=== PATIENT | male | born 1940 | race Caucasian/White ===

== ENCOUNTER 2017-08-21 10:36 | Inpatient (IN) | payer OTHER ==
--- NOTE | 2017-08-21 11:39 | C.PDOC ---
History Of Present Illness 77 year old male with PMHx of DM, HLD, HIV(+) is sent to the ED by his regional economist Dr. Villatoro. Patient reports he had a CT angiogram of the neck done which showed he had carotid stenosis and was sent to the ED for further evaluation and possible admission. Patient states having some pain when turning his head and slight SOB on exertion. Patient denies headache, CP, nausea, vomit , diarrhea, abdominal pain, blurry vision, weakness, numbness. Time Seen by Provider: 08/21/17 11:23 Chief Complaint (Nursing): Dizziness/Lightheaded History Per: Patient History/Exam Limitations: no limitations Onset/Duration Of Symptoms: Days Current Symptoms Are (Timing): Gone Seizure Or Post-ictal Symptoms: None Fall Associated With With Symptoms: No Severity: None Recent travel outside of the [place]: No Additional History Per: Patient Past Medical History Reviewed: Historical Data, Nursing Documentation, Vital Signs Vital Signs: Last Vital Signs Temp 97.8 F 08/21/17 11:01 Pulse 71 08/21/17 11:01 Resp 18 08/21/17 11:01 BP 146/69 08/21/17 11:01 Pulse Ox 98 08/21/17 12:16 - Medical History PMH: Diabetes, HIV, Hypercholesterolemia Surgical History: No Surg Hx Family History: States: Unknown Family Hx - Social History Hx Alcohol Use: No Hx Substance Use: No - Immunization History Hx Tetanus Toxoid Vaccination: No Hx Influenza Vaccination: No Hx Pneumococcal Vaccination: No Review Of Systems Constitutional: Negative for: Fever, Chills Cardiovascular: Negative for: Chest Pain Respiratory: Negative for: Cough, Shortness of Breath Gastrointestinal: Negative for: Nausea, Vomiting, Abdominal Pain Musculoskeletal: Positive for: Neck Pain Skin: Negative for: Rash Neurological: Negative for: Weakness, Numbness, Headache, Dizziness Physical Exam - Physical Exam Appears: Non-toxic, No Acute Distress Skin: Normal Color, Warm, Dry Head: Atraumatic, Normacephalic Nose: No Discharge, No Deformity Oral Mucosa: Moist Neck: Normal ROM, Supple Chest: Symmetrical Cardiovascular: Rhythm Regular, No Murmur Respiratory: Normal Breath Sounds, No Rales, No Rhonchi, No Wheezing Gastrointestinal/Abdominal: Soft, No Tenderness, No Guarding, No Rebound Extremity: Normal ROM, No Pedal Edema, No Calf Tenderness, No Deformity, No Swelling Neurological/Psych: Oriented x3, Normal Speech, Normal Cognition Gait: Steady ED Course And Treatment - Laboratory Results Result Diagrams: 08/21/17 11:39 08/21/17 11:39 ECG: Interpreted By Me, Viewed By Me ECG Rhythm: Sinus Rhythm Interpretation Of ECG: LVH with QRS widening Rate From EC O2 Sat by Pulse Oximetry: 98 (On RA) Pulse Ox Interpretation: Normal - Radiology CXR: Viewed By Me, Read By Radiologist CXR Interpretation: Yes: Other (Biapical nodular pleural thickening. Rounded structure at the level of the mediastinum superior to the right hilum likely prominent vessel.) Medical Decision Making Medical Decision Making: Impression : Pt sent by Dr. Villatoro after neck CT angiogram showed carotid stenosis Plan: * EKG * Labs * CXR * UA Disposition Discussed With DrFeroz: Dusty Jones Counseled Patient/Family Regarding: Studies Performed, Diagnosis - Disposition Disposition: HOSPITALIZED Disposition Time: 12:15 Condition: GUARDED - POA Present On Arrival: None - Clinical Impression Clinical Impression: Dizziness, Near syncope - Scribe Statement The provider has reviewed the documentation as recorded by the Scribe Ike Monteiro All medical record entries made by the Scribe were at my direction and personally dictated by me. I have reviewed the chart and agree that the record accurately reflects my personal performance of the history, physical exam, medical decision making, and the department course for this patient. I have also personally directed, reviewed, and agree with the discharge instructions and disposition. Decision To Admit - Pt Status Changed To: Hospital Disposition Of: Inpatient - Admit Certification Admit to Inpatient:: After my assessment, the patient will require hospitalization for at least two midnights. This is because of the severity of symptoms shown, intensity of services needed, and/or the medical risk in this patient being treated as an outpatient. - InPatient: Physician Admission Certification: I certify that this patient requires 2 or more midnights of care for the following reason:: coratid stenosis, dizziness, hx TIA - . Bed Request Type: Telemetry Patient Diagnosis: Dizziness, Near syncope
[2017-08-21 11:42] LABS: BASO # 0.1 K/uL (0.0-0.2); BASO % 0.7 % (0.0-2.0); EOS # 0.2 K/uL (0.0-0.7); EOS % 2.2 % (0.0-4.0); HEMOGLOBIN 14.2 g/dL (12.0-18.0); LYMPH # 3.4 K/uL (1.0-4.3); LYMPH % 42.3 % (20.0-40.0); MEAN CELL VOLUME 87.6 fL (80.0-94.0); MEAN CORPUSCULAR HEMOGLOBIN 29.6 pg (27.0-31.0); MEAN CORPUSCULAR HGB CONC 33.8 g/dL (33.0-37.0); MEAN PLATELET VOLUME 10.8 fL (7.2-11.7); MONO # 0.7 K/uL (0.0-0.8); MONO % 8.1 % (0.0-10.0); NEUT # 3.8 K/uL (1.8-7.0); NEUT % 46.7 % (50.0-75.0); NRBC % 0.1 % (0.0-2.0); RBC 4.79 Mil/uL (4.40-5.90); RED CELL DISTRIBUTION WIDTH 14.4 % (11.5-14.5); WHITE BLOOD COUNT 8.1 K/uL (4.8-10.8)
[2017-08-21 11:59] LABS: ALB/GLOB RATIO 1.4 (1.0-2.1); ALBUMIN 4.5 g/dL (3.5-5.0); ALT/SGPT 34 U/L (21-72); AST/SGOT 20 U/L (17-59); BLOOD UREA NITROGEN 25 mg/dL (9-20); CALCIUM 9.1 mg/dl (8.6-10.4); GFR AFRICAN-AMERICAN > 60; GFR NON-AFRICAN AMERICAN 59
[2017-08-21 12:15] LABS: CK-MB 3.59 ng/mL (0.0-3.38)
[2017-08-21 12:17] LABS: URINE BACTERIA RARE (<OCC); URINE BILIRUBIN NEGATIVE (NEGATIVE); URINE BLOOD NEGATIVE (NEGATIVE); URINE CLARITY Clear (Clear); URINE COLOR Yellow (YELLOW); URINE GLUCOSE (UA) 3+ mg/dL (Normal); URINE LEUKOCYTE ESTERASE NEG Leu/uL (Negative); URINE NITRATE NEGATIVE (NEGATIVE); URINE PROTEIN NEGATIVE (NEGATIVE); URINE UROBILINOGEN NORMAL mg/dL (0.2-1.0)
--- NOTE | 2017-08-21 13:53 | RAD ---
HISTORY: SOB COMPARISON: None available. TECHNIQUE: Chest PA and lateral FINDINGS: LUNGS: Biapical nodular pleural thickening. No focal consolidation.Rounded structure at the level of the mediastinum superior to the right hilum likely prominent vessel. Please note that chest x-ray has limited sensitivity for the detection of pulmonary masses. PLEURA: No significant pleural effusion identified. No definite pneumothorax . CARDIOVASCULAR: Heart size appears within normal limits. OSSEOUS STRUCTURES: Degenerative changes of the spine and shoulders. Remote rib fracture deformities. VISUALIZED UPPER ABDOMEN: Mild elevation of the right hemidiaphragm. OTHER FINDINGS: None. IMPRESSION: Biapical nodular pleural thickening. Rounded structure at the level of the mediastinum superior to the right hilum likely prominent vessel.
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
[2017-08-21] MEDS ORDERED: Iodixanol 320 MG/ML 100 ML BOTTLE IV ONE (17:29)
[2017-08-21] MEDS: Enoxaparin 40 mg Syringe SC SCH (18:05)
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
[2017-08-22 08:30] LABS: PROTHROMBIN TIME 11.4 SECONDS (9.7-12.2)
[2017-08-22] MEDS: Enoxaparin 40 mg Syringe SC SCH (09:05)
[2017-08-22] MEDS ORDERED: Midazolam 2 MG/2 ML VIAL ONE (09:25)
[2017-08-22] MEDS ORDERED: Iohexol 350mg/ml 100 ML ONE (09:29)
[2017-08-22] MEDS ORDERED: Nitroglycerin 50mg in D5W 50 MG/250 ML BOTTLE IV ONE (09:38)
--- NOTE | 2017-08-22 10:46 | CP.PCM.PN ---
Subjective - Date & Time of Evaluation Date of Evaluation: 08/22/17 Time of Evaluation: 10:45 - Subjective Subjective: Patient s/p cath Non obstructive coronaries Normal EF Low to moderate risk for cardiac events for CEA under general anaesthesia Objective - Vital Signs/Intake and Output Vital Signs (last 24 hours): Temp Pulse Resp BP Pulse Ox 97.5 F L 71 18 129/65 95 08/22/17 09:05 08/22/17 09:05 08/22/17 09:05 08/22/17 09:05 08/22/17 09:05 Intake and Output: 08/22/17 08/22/17 06:59 18:59 Intake Total 210 Balance 210 - Medications Medications: Current Medications Aspirin (Aspirin Chewable) 81 mg PO DAILY [facility] Last Admin: 08/22/17 09:03 Dose: 81 mg Enoxaparin Sodium (Lovenox) 40 mg SC DAILY [facility] Last Admin: 08/22/17 09:05 Dose: Not Given Sodium Chloride (Sodium Chloride 0.9%) 1,000 mls @ 80 mls/hr IV .[id number] [facility] Pneumococcal Polyvalent Vaccine (Pneumovax 23 Vaccine) 0.5 ml IM .ONCE ONE Stop: 08/24/17 14:01 Rosuvastatin Calcium (Crestor) 20 mg PO HS [facility] Last Admin: 08/21/17 22:33 Dose: 20 mg - Labs Labs: 08/21/17 11:39 08/21/17 11:39 PT 11.4 SECONDS (9.7-12.2) 08/22/17 08:17 INR 1.0 08/22/17 08:17 APTT 33 SECONDS (21-34) 08/22/17 08:17
[2017-08-22] MEDS ORDERED: Sodium Chloride 0.9% 1,000 ML IV SCH (11:00)
--- NOTE | 2017-08-22 13:36 | VASCLAB ---
PROCEDURE: HISTORY: carotid stenosis COMPARISON: None available. TECHNIQUE: Grayscale and duplex Doppler evaluation of the cervical carotid and vertebral arteries were performed. The common carotid, carotid bifurcations and cervical Internal Carotid Artery (ICA) and proximal External Carotid Artery (ECA) were evaluated. The vertebral arteries were evaluated for gross patency and flow direction. Report prepared by Giovany Oh, BS, RVT FINDINGS: RIGHT CAROTID ARTERIES: 1. Common Carotid Artery: No significant focal plaque formation of the right common carotid artery. Maximum Peak Systolic velocity: 77 cm/sec: End-diastolic velocity 0 cm/sec. 2. Carotid Bifurcation: Homogeneous plaque formation. Maximum Peak Systolic velocity: 67 cm/sec: End-diastolic velocity 0 cm/sec. 3. Internal Carotid Artery: Severe plaque formation of the right proximal ICA which results in a hemodynamically significant stenosis. Plaque description: Homogeneous 3.1. Proximal Segment: Peak systolic velocity 451 cm/sec: End-diastolic velocity 111 cm/sec - % stenosis 70-95% 3.2. Middle Segment: Peak systolic velocity 73 cm/sec: End-diastolic velocity 0 cm/sec - % stenosis 3.3. Distal Segment: Peak systolic velocity 118 cm/sec: End-diastolic velocity 0 cm/sec - % stenosis 4. External Carotid Artery: No significant focal plaque formation. Peak systolic velocity 180 cm/sec 5. ICA/CCA Ratio: 5.9 LEFT CAROTID ARTERIES: 1. Common Carotid Artery: No significant focal plaque formation of the left common carotid artery. Maximum Peak Systolic velocity: 134 cm/sec: End-diastolic velocity 17 cm/sec. 2. Carotid Bifurcation: plaque formation. Maximum Peak Systolic velocity: 130 cm/sec: End-diastolic velocity 14 cm/sec. 3. Internal Carotid Artery: Plaque description: 3.1. Proximal Segment: Peak systolic velocity 188 cm/sec: End-diastolic velocity 30 cm/sec - % stenosis 60-70% 3.2. Middle Segment: Peak systolic velocity 128 cm/sec: End-diastolic velocity 33 cm/sec - % stenosis 0-15% 3.3. Distal Segment: Peak systolic velocity 124 cm/sec: End-diastolic velocity 33 cm/sec - % stenosis 0-15% 4. External Carotid Artery: No significant focal plaque formation. Peak systolic velocity 227 cm/sec 5. ICA/CCA Ratio: 1.4 VERTEBRAL ARTERIES: 1. Right Vertebral Artery: The right vertebral artery flow direction is antegrade. 2. Left Vertebral Artery: The left vertebral artery flow direction is antegrade. OTHER FINDINGS: 1. Right Brachial Blood pressure: 140 mmHg. 2. Left Brachial Blood pressure: 128 mmHg. IMPRESSION: RIGHT: 70-95% stenosis of the right proximal ICA with severe hemodynamic significance. However, absent end diastolic present in mid and distal ICA waveforms are suggestive of distal occlusion. LEFT: 60-70% stenosis of the left proximal ICA with moderate hemodynamic significance. Dr. Cisse notified about the findings.
--- NOTE | 2017-08-22 14:21 | CP.PCM.PN ---
Subjective - Date & Time of Evaluation Date of Evaluation: 08/22/17 Time of Evaluation: 14:19 - Subjective Subjective: Surgery Pt s&e. NAEON. Pt got cardiac catheterization today. Denies F/C/N/V/D/CP/SOb/ Dizziness/focal weakness. Objective - Vital Signs/Intake and Output Vital Signs (last 24 hours): Temp Pulse Resp BP Pulse Ox 97.5 F L 71 18 129/65 95 08/22/17 09:05 08/22/17 09:05 08/22/17 09:05 08/22/17 09:05 08/22/17 09:05 Intake and Output: 08/22/17 08/22/17 06:59 18:59 Intake Total 210 Balance 210 - Medications Medications: Current Medications Aspirin (Aspirin Chewable) 81 mg PO DAILY [facility] Last Admin: 08/22/17 09:03 Dose: 81 mg Enoxaparin Sodium (Lovenox) 40 mg SC DAILY [facility] Last Admin: 08/22/17 09:05 Dose: Not Given Sodium Chloride (Sodium Chloride 0.9%) 1,000 mls @ 80 mls/hr IV .[id number] [facility] Sodium Chloride (Sodium Chloride 0.9%) 1,000 mls @ 70 mls/hr IV .[id number] [facility] Stop: 08/22/17 23:00 Pneumococcal Polyvalent Vaccine (Pneumovax 23 Vaccine) 0.5 ml IM .ONCE ONE Stop: 08/24/17 14:01 Rosuvastatin Calcium (Crestor) 20 mg PO [facility] Last Admin: 08/21/17 22:33 Dose: 20 mg - Labs Labs: 08/21/17 11:39 08/21/17 11:39 PT 11.4 SECONDS (9.7-12.2) 08/22/17 08:17 INR 1.0 08/22/17 08:17 APTT 33 SECONDS (21-34) 08/22/17 08:17 - Constitutional Appears: No Acute Distress - Head Exam Head Exam: ATRAUMATIC, NORMAL INSPECTION, NORMOCEPHALIC - Eye Exam Eye Exam: EOMI, Normal appearance, PERRL Pupil Exam: NORMAL ACCOMODATION, PERRL - ENT Exam ENT Exam: Mucous Membranes Moist, Normal Exam - Neck Exam Neck Exam: Full ROM, Normal Inspection. absent: Lymphadenopathy - Respiratory Exam Respiratory Exam: Clear to Ausculation Bilateral, NORMAL BREATHING PATTERN - Cardiovascular Exam Cardiovascular Exam: REGULAR RHYTHM, +S1, +S2. absent: Murmur - GI/Abdominal Exam GI & Abdominal Exam: Soft, Normal Bowel Sounds. absent: Distended, Tenderness - Extremities Exam Extremities Exam: Full ROM, Normal Capillary Refill, Normal Inspection. absent : Joint Swelling, Pedal Edema - Back Exam Back Exam: NORMAL INSPECTION - Neurological Exam Neurological Exam: Alert, Awake, CN II-XII Intact, Normal Gait, Oriented x3 - Psychiatric Exam Psychiatric exam: Normal Affect, Normal Mood - Skin Skin Exam: Dry, Intact, Normal Color, Warm Assessment and Plan - Assessment and Plan (Free Text) Assessment: R ICA stenosis -CTA : near obstructing R carotid stenosis -Duplex: R ICA 450 -Planned for OR tomorrow for Carotid Endarterectomy -NPO after midnight DW Dr. Umaña
--- NOTE | 2017-08-22 15:08 | CT ---
PROCEDURE: CT Angiography of the Brain. HISTORY: carotid stenosis COMPARISON: None available. TECHNIQUE: CT angiography of the intracranial arteries was performed. Coronal and sagittal maximum intensity projection reformated images were generated. This CT exam was performed using one or more of the following dose reduction techniques: Automated exposure control, adjustment of the mA and/or kV according to patient size, and/or use of iterative reconstruction technique. FINDINGS: INTERNAL CEREBRAL ARTERIES: At the left, the skull base, petrous, cavernous and supraclinoid ICA segments are widely patent. The right ICA is patent through the skullbase and into its minimal supraclinoid segment. No critical stenosis identified at its origin however. See neck CTA section below. ANTERIOR CEREBRAL ARTERIES: Unremarkable. A1 and A2 segments are widely patent. Smaller distal branches unremarkable, as visualized. The anterior communicating artery appears patent. MIDDLE CEREBRAL ARTERIES: Unremarkable. M1 and M2 segments are widely patent. Perisylvian branches grossly symmetric. POSTERIOR CIRCULATION: Basilar Artery: Patent without significant stenosis. . Distal Vertebral Arteries: Left dominant, patent bilaterally. Posterior Cerebral Arteries: Patent without significant stenosis. The bilateral posterior communicating arteries are patent. Posterior Inferior Cerebellar Arteries: Unremarkable. NECK CTA: Common carotid arteries: The left common carotid carotid artery is widely patent from its origin the through its bifurcation. The right common carotid artery is patent up to the bulb level where prominent atherosclerotic plaques identified. No evidence to suggest common carotid artery dissection. Internal carotid arteries: Gross atherosclerotic plaque is identified at the right carotid bulb resulting in a critical stenosis of likely greater than 90-95 percent at the origin which is favored over occlusion of the right ICA. No collateralization is appreciated immediately following the presumed high-grade stenosis. No significant stenosis is appreciated throughout the left cervical internal carotid artery segments and there is no evidence of dissection either. Vertebral arteries: The bilateral vertebral arteries appear normal in caliber from their origins to their junction with the basilar artery. Vertebrobasilar system appears left dominant. No significant stenosis or definite pattern of dissection. Incidentally, the bilateral subclavian arteries are widely patent as well as the brachiocephalic artery. ANEURYSM/ VASCULAR MALFORMATIONS: None. OTHER FINDINGS: None. IMPRESSION: Critical stenosis is favored over occlusion at the origin of the right ICA. The examination agrees with carotid ultrasound evaluation performed 08/21/2017. Digital subtraction angiography may be required to prove patency of the proximal right ICA. No significant stenosis left ICA and bilateral common carotid arteries. The bilateral common carotid arteries appear patent. Left dominant vertebrobasilar circulation appears patent.
--- NOTE | 2017-08-22 15:10 | CARD ---
APPROVED REPORT EKG Measurement Heart [id number] CT [id number] <Conclusion> Normal sinus rhythm Left axis deviation Left ventricular hypertrophy with QRS widening and repolarization abnormality Cannot rule out anterior infarct, age undetermined Abnormal ECG
[2017-08-22] MEDS: (Novolog) Insulin Aspart, Recombinant 100 u/ml 10 ml vial SC SCH ×2 (17:25→22:22)
--- NOTE | 2017-08-22 20:29 | CP.PCM.PN ---
Subjective - Date & Time of Evaluation Date of Evaluation: 08/22/17 Time of Evaluation: 20:29 Objective - Vital Signs/Intake and Output Vital Signs (last 24 hours): Temp Pulse Resp BP Pulse Ox 97.5 F L 65 20 135/64 96 08/22/17 15:00 08/22/17 16:00 08/22/17 15:00 08/22/17 15:00 08/22/17 15:00 Intake and Output: 08/22/17 08/23/17 18:59 06:59 Intake Total 35 Balance 35 - Medications Medications: Current Medications Aspirin (Aspirin Chewable) 81 mg PO DAILY [facility] Last Admin: 08/22/17 09:03 Dose: 81 mg Enoxaparin Sodium (Lovenox) 40 mg SC DAILY [facility] Last Admin: 08/22/17 09:05 Dose: Not Given Sodium Chloride (Sodium Chloride 0.9%) 1,000 mls @ 80 mls/hr IV .[id number] [facility] Sodium Chloride (Sodium Chloride 0.9%) 1,000 mls @ 70 mls/hr IV .[id number] [facility] Stop: 08/22/17 23:00 Last Admin: 08/22/17 14:59 Dose: 70 mls/hr Insulin Aspart (Novolog) 0 unit SC ACHS [facility] PRN Reason: Protocol Last Admin: 08/22/17 17:25 Dose: 2 unit Pneumococcal Polyvalent Vaccine (Pneumovax 23 Vaccine) 0.5 ml IM .ONCE ONE Stop: 08/24/17 14:01 Rosuvastatin Calcium (Crestor) 20 mg PO HS [facility] Last Admin: 08/21/17 22:33 Dose: 20 mg - Labs Labs: 08/21/17 11:39 08/21/17 11:39 PT 11.4 SECONDS (9.7-12.2) 08/22/17 08:17 INR 1.0 08/22/17 08:17 APTT 33 SECONDS (21-34) 08/22/17 08:17
[2017-08-23 07:23] LABS: BASO % 0.4 % (0.0-2.0); EOS # 0.2 K/uL (0.0-0.7); EOS % 2.5 % (0.0-4.0); HEMOGLOBIN 13.8 g/dL (12.0-18.0); LYMPH # 3.4 K/uL (1.0-4.3); MEAN CELL VOLUME 87.4 fL (80.0-94.0); MEAN CORPUSCULAR HEMOGLOBIN 29.7 pg (27.0-31.0); MEAN CORPUSCULAR HGB CONC 33.9 g/dL (33.0-37.0); MEAN PLATELET VOLUME 10.8 fL (7.2-11.7); MONO # 0.8 K/uL (0.0-0.8); MONO % 9.8 % (0.0-10.0); NEUT # 4.2 K/uL (1.8-7.0); NEUT % 48.3 % (50.0-75.0); NRBC % 0.1 % (0.0-2.0); RBC 4.64 Mil/uL (4.40-5.90); RED CELL DISTRIBUTION WIDTH 14.4 % (11.5-14.5); WHITE BLOOD COUNT 8.6 K/uL (4.8-10.8)
[2017-08-23 07:25] LABS: PROTHROMBIN TIME 11.6 SECONDS (9.7-12.2)
[2017-08-23 08:21] LABS: ALB/GLOB RATIO 1.3 (1.0-2.1); ALBUMIN 3.7 g/dL (3.5-5.0); ALT/SGPT 23 U/L (21-72); AST/SGOT 20 U/L (17-59); BLOOD UREA NITROGEN 18 mg/dL (9-20); CALCIUM 8.3 mg/dl (8.6-10.4); GFR AFRICAN-AMERICAN > 60; GFR NON-AFRICAN AMERICAN > 60
[2017-08-23] MEDS: (Novolog) Insulin Aspart, Recombinant 100 u/ml 10 ml vial SC SCH ×4 (09:19→21:44)
[2017-08-23] MEDS: Enoxaparin 40 mg Syringe SC SCH (09:20)
[2017-08-23] MEDS ORDERED: Thrombin Topical 20,000 Intl Units Spray Kit TOP ONE (12:19)
[2017-08-23] MEDS ORDERED: Lidocaine 1% Inj (20ml) ONE (12:19)
[2017-08-23] MEDS ORDERED: ceFAZolin IV 1 gm in Dextrose 1 GM/50 ML BAG IVPB ONE (12:20)
[2017-08-23] MEDS ORDERED: Propofol 10 mg/ml Inj (20 ML) ONE (12:31)
[2017-08-23] MEDS ORDERED: Rocuronium 10 mg/ml (5 ml) ONE ×3 (12:32→13:52)
[2017-08-23] MEDS ORDERED: Succinylcholine Chloride 20 mg/ml Syr (5 ml) IV ONE ×3 (12:32→13:52)
[2017-08-23] MEDS ORDERED: Lactated Ringer's 1,000 ML IV ONE ×2 (12:40→14:35)
[2017-08-23] MEDS ORDERED: White Petrolatum/Mineral Oil Ophth Oint(3.5 gm) ONE ×2 (13:00→13:45)
[2017-08-23] MEDS ORDERED: HEPARIN-NS 5,000 UNITS/500 ML 10,000 UNIT/1,000 ML BAG IV ONE (13:19)
[2017-08-23] MEDS ORDERED: ePHEDrine 50 mg/ml Inj ONE (13:33)
[2017-08-23] MEDS: Sodium Chloride 0.9% 1,000 ML IV SCH ×2 (13:55→17:10)
[2017-08-23] MEDS ORDERED: oxyCODONE 5 mg Immediate Release Tab PO PRN (15:51)
--- NOTE | 2017-08-23 15:51 | PCM.SURG1 ---
Surgeon's Initial Post Op Note - Surgeon's Notes Surgeon: Leeroy Fitting Room Inspector: PGY4, Inder MS3 Type of Anesthesia: General Endo Pre-Operative Diagnosis: R carotid stenosis Operative Findings: R carotid plaque Post-Operative Diagnosis: R carotid stenosis Operation Performed: R carotid endarterectomy Specimen/Specimens Removed: R carotid plaque Estimated Blood Loss: EBL {In ML}: 100 Blood Products Given: N/A Drains Used: Lg (in R neck) Date of Surgery/Procedure: 08/23/17 Time of Surgery/Procedure: 12:40
--- NOTE | 2017-08-23 15:52 | CP.PCM.PN ---
Subjective - Date & Time of Evaluation Date of Evaluation: 08/23/17 Time of Evaluation: 15:51 Objective - Vital Signs/Intake and Output Vital Signs (last 24 hours): Temp Pulse Resp BP Pulse Ox 97.6 F 67 20 151/72 H 98 08/23/17 12:06 08/23/17 12:06 08/23/17 12:06 08/23/17 12:06 08/23/17 12:06 Intake and Output: 08/23/17 08/23/17 06:59 18:59 Intake Total 880 240 Output Total 1500 Balance -620 240 - Medications Medications: Current Medications Aspirin (Aspirin Chewable) 81 mg PO DAILY [facility] Last Admin: 08/23/17 09:18 Dose: 81 mg Aspirin (Aspirin Chewable) 81 mg PO DAILY [facility] Brimonidine Tartrate (Alphagan 0.2% Opht) 0 ml OU BID [facility] Donepezil HCl (Aricept) 10 mg PO DAILY [facility] Enoxaparin Sodium (Lovenox) 40 mg SC DAILY [facility] Last Admin: 08/23/17 09:20 Dose: Not Given Fenofibrate (Tricor) 145 mg PO DAILY [facility] Ferrous Sulfate (Feosol) 325 mg PO DAILY [facility] Furosemide (Lasix) 20 mg PO DAILY [facility] Gabapentin (Neurontin) 300 mg PO BID [facility] Glipizide (Glucotrol) 10 mg PO BID [facility] Sodium Chloride (Sodium Chloride 0.9%) 1,000 mls @ 80 mls/hr IV .[id number] [facility] Last Admin: 08/23/17 13:55 Dose: Not Given Insulin Aspart (Novolog) 0 unit SC ACHS [facility] PRN Reason: Protocol Last Admin: 08/23/17 11:30 Dose: Not Given Ketoconazole (Nizoral) gm TOP BID [facility] Metformin HCl (Glucophage) 1,000 mg PO BIDCC [facility] Pneumococcal Polyvalent Vaccine (Pneumovax 23 Vaccine) 0.5 ml IM .ONCE ONE Stop: 08/24/17 14:01 Potassium Chloride (Klor-Con 10) 10 meq PO DAILY [facility] Raltegravir (Isentress) 400 mg PO BID [facility] Rosuvastatin Calcium (Crestor) 20 mg PO HS [facility] Last Admin: 08/22/17 21:42 Dose: 20 mg Tamsulosin HCl (Flomax) 0.4 mg PO DAILY [facility] Timolol Maleate (Timoptic 0.5% Ophth Soln) 0 drop OU BID [facility] - Labs Labs: 08/23/17 07:01 08/23/17 07:01 PT 11.6 SECONDS (9.7-12.2) 08/23/17 07:01 INR 1.0 08/23/17 07:01 APTT 31 SECONDS (21-34) 08/23/17 07:01
[2017-08-23] MEDS ORDERED: Nitroglycerin 2% Ointment Foilpak UD TOP PRN (15:55)
[2017-08-23] MEDS ORDERED: Sodium Chloride 0.9% 1,000 ML IV ONE (17:00)
[2017-08-23] MEDS ORDERED: Home Med 1 UNIT (Brimonidine Tartrate/Timolol [Combigan 0.2%-0.5% Eye Drops] 1 DROP) OU SCH (18:00)
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
[2017-08-23] MEDS: Brimonidine 0.2% Opth Sol (5ml) OU SCH (18:41)
[2017-08-24] MEDS: Sodium Chloride 0.9% 1,000 ML IV SCH ×2 (01:10→06:00)
[2017-08-24] MEDS ORDERED: Dextrose 5%/0.9% NS 1,000 ML IV SCH (06:30)
[2017-08-24 06:39] LABS: BASO % 0.3 % (0.0-2.0); EOS # 0.1 K/uL (0.0-0.7); EOS % 1.1 % (0.0-4.0); HEMOGLOBIN 12.8 g/dL (12.0-18.0); LYMPH # 2.5 K/uL (1.0-4.3); LYMPH % 30.5 % (20.0-40.0); MEAN CELL VOLUME 87.2 fL (80.0-94.0); MEAN CORPUSCULAR HGB CONC 34.4 g/dL (33.0-37.0); MEAN PLATELET VOLUME 10.7 fL (7.2-11.7); MONO # 0.9 K/uL (0.0-0.8); MONO % 10.3 % (0.0-10.0); NEUT # 4.8 K/uL (1.8-7.0); NEUT % 57.8 % (50.0-75.0); RBC 4.26 Mil/uL (4.40-5.90); RED CELL DISTRIBUTION WIDTH 14.5 % (11.5-14.5); WHITE BLOOD COUNT 8.3 K/uL (4.8-10.8)
[2017-08-24 06:55] LABS: BLOOD UREA NITROGEN 16 mg/dL (9-20); CALCIUM 8.2 mg/dl (8.6-10.4); GFR AFRICAN-AMERICAN > 60; GFR NON-AFRICAN AMERICAN > 60; MAGNESIUM 1.8 mg/dL (1.6-2.3)
[2017-08-24] MEDS: (Novolog) Insulin Aspart, Recombinant 100 u/ml 10 ml vial SC SCH ×4 (07:51→22:08)
[2017-08-24] MEDS: Enoxaparin 40 mg Syringe SC SCH (09:35)
[2017-08-24] MEDS: Potassium Chloride 10 mEq ER Tab PO SCH (09:36)
[2017-08-24] MEDS: Brimonidine 0.2% Opth Sol (5ml) OU SCH ×2 (09:39→17:47)
--- NOTE | 2017-08-24 10:09 | CP.CCUPN ---
CCU Subjective - Physician Review Events Since Last Encounter (Free Text): 08/24/17 10:08 77-year-old male with a history of hypertension, diabetes, hyperlipidemia, HIV admitted with CVA. Right internal carotid artery stenosis, and the patient underwent right carotid endarterectomy. Patient is currently feeling well. Vital signs stable. Patient is awake and responding. Clinically stable. Neurological examination is unremarkable. Patient is clinical stable, and he can be discharged to the regular medical floor CCU Objective - Vital Signs / Intake & Output Vital Signs (Last 4 hours): Vital Signs Temp Pulse Resp BP Pulse Ox 08/24/17 09:37 119/48 L 08/24/17 08:00 97.8 F 60 16 133/51 L 96 08/24/17 07:08 58 L 13 123/45 L 97 08/24/17 07:00 60 12 95 Intake and Output (Last 8hrs): Intake & Output 08/23/17 08/24/17 08/24/17 22:59 06:59 14:59 Intake Total 670 640 160 Output Total 45 600 300 Balance 625 40 -140 Intake: Intake, IV Amount 570 640 160 Left Forearm 320 640 160 Left Upper arm 10 Right Forearm 240 Oral 100 Output: Urine 600 300 Urine, Voided 600 300 Emesis 45 Other: # Voids Urine, Voided 0 # Bowel Movements 0 - Medications Active Medications: Active Medications Generic Name Dose Route Start Last Admin Trade Name Freq PRN Reason Stop Dose Admin Aspirin 81 mg 08/24/17 10:00 08/24/17 09:36 Aspirin Chewable PO 81 mg DAILY MAYANK Administration Brimonidine Tartrate 0 ml 08/23/17 18:00 08/24/17 09:39 Alphagan 0.2% Opht OU 1 drop BID MAYANK Administration Donepezil HCl 10 mg 08/24/17 10:00 08/24/17 09:37 Aricept PO 10 mg DAILY [facility] Administration Enoxaparin Sodium 40 mg 08/21/17 16:45 08/24/17 09:35 Lovenox SC 40 mg DAILY [facility] Administration Fenofibrate 145 mg 08/24/17 10:00 08/24/17 09:37 Tricor PO 145 mg DAILY [facility] Administration Ferrous Sulfate 325 mg 08/24/17 10:00 08/24/17 09:37 Feosol PO 325 mg DAILY [facility] Administration Furosemide 20 mg 08/24/17 10:00 08/24/17 09:37 Lasix PO 20 mg DAILY [facility] Administration Gabapentin 300 mg 08/23/17 18:00 08/24/17 09:36 Neurontin PO 300 mg BID [facility] Administration Glipizide 10 mg 08/23/17 18:00 08/24/17 09:36 Glucotrol PO 10 mg BID [facility] Administration Sodium Chloride 1,000 mls @ 80 mls/hr 08/22/17 10:45 08/24/17 06:00 Sodium Chloride 0.9% IV 80 mls/hr .[id number] MAYANK Administration Insulin Aspart 0 unit 08/22/17 16:30 08/24/17 07:51 Novolog SC 2 unit ACHS MAYANK Administration Protocol Ketoconazole 0 gm 08/23/17 18:00 08/24/17 09:38 Nizoral TOP 1 applic BID MAY[facility] Administration Metformin HCl 1,000 mg 08/23/17 17:00 08/24/17 07:51 Glucophage PO 1,000 mg BIDCC MAY[facility] Administration Nitroglycerin 1 ea 08/23/17 15:55 Nitro-Bid 2% Oint TOP 1200 PRN Systolic Blood Pressure Oxycodone HCl 5 mg 08/23/17 15:51 Oxycodone Immediate Release Tab PO Q6H PRN Pain, moderate (4-7) Pneumococcal Polyvalent Vaccine 0.5 ml 08/24/17 14:00 Pneumovax 23 Vaccine IM 08/24/17 14:01 .ONCE ONE Potassium Chloride 10 meq 08/24/17 10:00 08/24/17 09:36 Klor-Con 10 PO 10 meq DAILY [facility] Administration Raltegravir 400 mg 08/23/17 18:00 08/24/17 09:53 Isentress PO 400 mg BID MAY[facility] Administration Rosuvastatin Calcium 20 mg 08/21/17 22:00 08/23/17 21:42 Crestor PO 20 mg HS MAYANK Administration Tamsulosin HCl 0.4 mg 08/24/17 10:00 08/24/17 09:37 Flomax PO 0.4 mg DAILY [facility] Administration Timolol Maleate 0 drop 08/23/17 18:00 08/24/17 09:39 Timoptic 0.5% Ophth Soln OU 1 drop BID MAYANK Administration - Patient Studies Lab Studies: Lab Studies 08/24/17 08/24/17 08/24/17 Range/Units 07:47 06:29 06:29 WBC 8.3 (4.8-10.8) K/uL RBC 4.26 L (4.40-5.90) Mil/uL Hgb 12.8 (12.0-18.0) g/dL Hct 37.2 (35.0-51.0) % MCV 87.2 (80.0-94.0) fL MCH 30.0 (27.0-31.0) pg MCHC 34.4 (33.0-37.0) g/dL RDW 14.5 (11.5-14.5) % Plt Count 143 (130-400) K/uL MPV 10.7 (7.2-11.7) fL Neut % (Auto) 57.8 (50.0-75.0) % Lymph % (Auto) 30.5 (20.0-40.0) % [place] % (Auto) 10.3 H (0.0-10.0) % Eos % (Auto) 1.1 (0.0-4.0) % Baso % (Auto) 0.3 (0.0-2.0) % Neut # 4.8 (1.8-7.0) K/uL Lymph # 2.5 (1.0-4.3) K/uL [place] # 0.9 H (0.0-0.8) K/uL Eos # 0.1 (0.0-0.7) K/uL Baso # 0.0 (0.0-0.2) K/uL Sodium 134 (132-148) mmol/L Potassium 3.9 (3.6-5.2) mmol/L Chloride 104 (98-107) mmol/L Carbon Dioxide 23 (22-30) mmol/L Anion Gap 11 (10-20) BUN 16 (9-20) mg/dL Creatinine 0.8 (0.8-1.5) mg/dL Est GFR ( Amer) > 60 Est GFR (Non-Af Amer) > 60 POC Glucose (mg/dL) 176 H (65-110) mg/dL Random Glucose 173 H (75-110) mg/dL Calcium 8.2 L (8.6-10.4) mg/dl Phosphorus 3.0 (2.5-4.5) mg/dL Magnesium 1.8 (1.6-2.3) mg/dL 08/23/17 08/23/17 08/23/17 Range/Units 21:28 16:55 11:26 WBC (4.8-10.8) K/uL RBC (4.40-5.90) Mil/uL Hgb (12.0-18.0) g/dL Hct (35.0-51.0) % MCV (80.0-94.0) fL MCH (27.0-31.0) pg MCHC (33.0-37.0) g/dL RDW (11.5-14.5) % Plt Count (130-400) K/uL MPV (7.2-11.7) fL Neut % (Auto) (50.0-75.0) % Lymph % (Auto) (20.0-40.0) % [place] % (Auto) (0.0-10.0) % Eos % (Auto) (0.0-4.0) % Baso % (Auto) (0.0-2.0) % Neut # (1.8-7.0) K/uL Lymph # (1.0-4.3) K/uL [place] # (0.0-0.8) K/uL Eos # (0.0-0.7) K/uL Baso # (0.0-0.2) K/uL Sodium (132-148) mmol/L Potassium (3.6-5.2) mmol/L Chloride (98-107) mmol/L Carbon Dioxide (22-30) mmol/L Anion Gap (10-20) BUN (9-20) mg/dL Creatinine (0.8-1.5) mg/dL Est GFR ( Amer) Est GFR (Non-Af Amer) POC Glucose (mg/dL) 185 H 153 H 171 H (65-110) mg/dL Random Glucose (75-110) mg/dL Calcium (8.6-10.4) mg/dl Phosphorus (2.5-4.5) mg/dL Magnesium (1.6-2.3) mg/dL 08/23/17 Range/Units 06:14 WBC (4.8-10.8) K/uL RBC (4.40-5.90) Mil/uL Hgb (12.0-18.0) g/dL Hct (35.0-51.0) % MCV (80.0-94.0) fL MCH (27.0-31.0) pg MCHC (33.0-37.0) g/dL RDW (11.5-14.5) % Plt Count (130-400) K/uL MPV (7.2-11.7) fL Neut % (Auto) (50.0-75.0) % Lymph % (Auto) (20.0-40.0) % [place] % (Auto) (0.0-10.0) % Eos % (Auto) (0.0-4.0) % Baso % (Auto) (0.0-2.0) % Neut # (1.8-7.0) K/uL Lymph # (1.0-4.3) K/uL [place] # (0.0-0.8) K/uL Eos # (0.0-0.7) K/uL Baso # (0.0-0.2) K/uL Sodium (132-148) mmol/L Potassium (3.6-5.2) mmol/L Chloride (98-107) mmol/L Carbon Dioxide (22-30) mmol/L Anion Gap (10-20) BUN (9-20) mg/dL Creatinine (0.8-1.5) mg/dL Est GFR ( Amer) Est GFR (Non-Af Amer) POC Glucose (mg/dL) 137 H (65-110) mg/dL Random Glucose (75-110) mg/dL Calcium (8.6-10.4) mg/dl Phosphorus (2.5-4.5) mg/dL Magnesium (1.6-2.3) mg/dL Laboratory Results - last 24 hr 08/23/17 08/23/17 08/23/17 06:14 11:26 16:55 WBC RBC Hgb Hct MCV MCH MCHC RDW Plt Count MPV Neut % (Auto) Lymph % (Auto) [place] % (Auto) Eos % (Auto) Baso % (Auto) Neut # Lymph # [place] # Eos # Baso # Sodium Potassium Chloride Carbon Dioxide Anion Gap BUN Creatinine Est GFR ( Amer) Est GFR (Non-Af Amer) POC Glucose (mg/dL) 137 H 171 H 153 H Random Glucose Calcium Phosphorus Magnesium 08/23/17 08/24/17 08/24/17 21:28 06:29 06:29 WBC 8.3 RBC 4.26 L Hgb 12.8 Hct 37.2 MCV 87.2 MCH 30.0 MCHC 34.4 RDW 14.5 Plt Count 143 MPV 10.7 Neut % (Auto) 57.8 Lymph % (Auto) 30.5 [place] % (Auto) 10.3 H Eos % (Auto) 1.1 Baso % (Auto) 0.3 Neut # 4.8 Lymph # 2.5 [place] # 0.9 H Eos # 0.1 Baso # 0.0 Sodium 134 Potassium 3.9 Chloride 104 Carbon Dioxide 23 Anion Gap 11 BUN 16 Creatinine 0.8 Est GFR ( Amer) > 60 Est GFR (Non-Af Amer) > 60 POC Glucose (mg/dL) 185 H Random Glucose 173 H Calcium 8.2 L Phosphorus 3.0 Magnesium 1.8 08/24/17 07:47 WBC RBC Hgb Hct MCV MCH MCHC RDW Plt Count MPV Neut % (Auto) Lymph % (Auto) [place] % (Auto) Eos % (Auto) Baso % (Auto) Neut # Lymph # [place] # Eos # Baso # Sodium Potassium Chloride Carbon Dioxide Anion Gap BUN Creatinine Est GFR ( Amer) Est GFR (Non-Af Amer) POC Glucose (mg/dL) 176 H Random Glucose Calcium Phosphorus Magnesium Fingerstick Blood Sugar Results: 176 Critical Care Progress Note - Nutrition Nutrition: Nutrition Category Date Time Status Liquid Diet [DIET] Diets 08/24/17 Breakfast Active
[2017-08-24] MEDS ORDERED: Magnesium Hydroxide Susp 30 ml UD PO ONE (10:32)
--- NOTE | 2017-08-24 10:35 | CP.PCM.PN ---
Subjective - Date & Time of Evaluation Date of Evaluation: 08/24/17 Time of Evaluation: 10:34 - Subjective Subjective: doing well no deficits bp etc ok labs ok to floor posible dc in a,m Objective - Vital Signs/Intake and Output Vital Signs (last 24 hours): Temp Pulse Resp BP Pulse Ox 97.8 F 65 14 119/48 L 96 08/24/17 08:00 08/24/17 09:00 08/24/17 09:00 08/24/17 09:37 08/24/17 09:00 Intake and Output: 08/24/17 08/24/17 06:59 18:59 Intake Total 1060 600 Output Total 645 300 Balance 415 300 - Medications Medications: Current Medications Aspirin (Aspirin Chewable) 81 mg PO DAILY [facility] Last Admin: 08/24/17 09:36 Dose: 81 mg Brimonidine Tartrate (Alphagan 0.2% Opht) 0 ml OU BID [facility] Last Admin: 08/24/17 09:39 Dose: 1 drop Donepezil HCl (Aricept) 10 mg PO DAILY [facility] Last Admin: 08/24/17 09:37 Dose: 10 mg Enoxaparin Sodium (Lovenox) 40 mg SC DAILY [facility] Last Admin: 08/24/17 09:35 Dose: 40 mg Fenofibrate (Tricor) 145 mg PO DAILY [facility] Last Admin: 08/24/17 09:37 Dose: 145 mg Ferrous Sulfate (Feosol) 325 mg PO DAILY [facility] Last Admin: 08/24/17 09:37 Dose: 325 mg Furosemide (Lasix) 20 mg PO DAILY [facility] Last Admin: 08/24/17 09:37 Dose: 20 mg Gabapentin (Neurontin) 300 mg PO BID [facility] Last Admin: 08/24/17 09:36 Dose: 300 mg Glipizide (Glucotrol) 10 mg PO BID [facility] Last Admin: 08/24/17 09:36 Dose: 10 mg Sodium Chloride (Sodium Chloride 0.9%) 1,000 mls @ 80 mls/hr IV .[id number] [facility] Last Admin: 08/24/17 06:00 Dose: 80 mls/hr Insulin Aspart (Novolog) 0 unit SC ACHS [facility] PRN Reason: Protocol Last Admin: 08/24/17 07:51 Dose: 2 unit Ketoconazole (Nizoral) 0 gm TOP BID [facility] Last Admin: 08/24/17 09:38 Dose: 1 applic Magnesium Hydroxide (Milk Of Magnesia) 30 ml PO ONCE ONE Stop: 08/24/17 10:33 Metformin HCl (Glucophage) 1,000 mg PO BIDCC [facility] Last Admin: 08/24/17 07:51 Dose: 1,000 mg Nitroglycerin (Nitro-Bid 2% Oint) 1 ea TOP 1200 PRN PRN Reason: Systolic Blood Pressure Oxycodone HCl (Oxycodone Immediate Release Tab) 5 mg PO Q6H PRN PRN Reason: Pain, moderate (4-7) Pneumococcal Polyvalent Vaccine (Pneumovax 23 Vaccine) 0.5 ml IM .ONCE ONE Stop: 08/24/17 14:01 Potassium Chloride (Klor-Con 10) 10 meq PO DAILY [facility] Last Admin: 08/24/17 09:36 Dose: 10 meq Raltegravir (Isentress) 400 mg PO BID [facility] Last Admin: 08/24/17 09:53 Dose: 400 mg Rosuvastatin Calcium (Crestor) 20 mg PO HS [facility] Last Admin: 08/23/17 21:42 Dose: 20 mg Tamsulosin HCl (Flomax) 0.4 mg PO DAILY [facility] Last Admin: 08/24/17 09:37 Dose: 0.4 mg Timolol Maleate (Timoptic 0.5% Oph Soln) 0 drop OU BID [facility] Last Admin: 08/24/17 09:39 Dose: 1 drop - Labs Labs: 08/24/17 06:29 08/24/17 06:29 PT 11.6 SECONDS (9.7-12.2) 08/23/17 07:01 INR 1.0 08/23/17 07:01 APTT 31 SECONDS (21-34) 08/23/17 07:01
[2017-08-24] MEDS ORDERED: Pneumococcal 23-Valent Vaccine IM ONE (14:00)
[2017-08-24] MEDS ORDERED: Influenza Vaccine 60 mcg/0.5 mL SYR (4YR UP) IM ONE (14:00)
--- NOTE | 2017-08-24 16:56 | CP.PCM.PN ---
Subjective - Date & Time of Evaluation Date of Evaluation: 08/24/17 Time of Evaluation: 16:56 Objective - Vital Signs/Intake and Output Vital Signs (last 24 hours): Temp Pulse Resp BP Pulse Ox 98.3 F 66 14 96/27 L 95 08/24/17 16:00 08/24/17 16:00 08/24/17 16:00 08/24/17 16:00 08/24/17 16:00 Intake and Output: 08/24/17 08/24/17 06:59 18:59 Intake Total 1060 1200 Output Total 645 650 Balance 415 550 - Medications Medications: Current Medications Aspirin (Aspirin Chewable) 81 mg PO DAILY [facility] Last Admin: 08/24/17 09:36 Dose: 81 mg Brimonidine Tartrate (Alphagan 0.2% Opht) 0 ml OU BID [facility] Last Admin: 08/24/17 09:39 Dose: 1 drop Donepezil HCl (Aricept) 10 mg PO DAILY [facility] Last Admin: 08/24/17 09:37 Dose: 10 mg Enoxaparin Sodium (Lovenox) 40 mg SC DAILY [facility] Last Admin: 08/24/17 09:35 Dose: 40 mg Fenofibrate (Tricor) 145 mg PO DAILY [facility] Last Admin: 08/24/17 09:37 Dose: 145 mg Ferrous Sulfate (Feosol) 325 mg PO DAILY [facility] Last Admin: 08/24/17 09:37 Dose: 325 mg Furosemide (Lasix) 20 mg PO DAILY [facility] Last Admin: 08/24/17 09:37 Dose: 20 mg Gabapentin (Neurontin) 300 mg PO BID [facility] Last Admin: 08/24/17 09:36 Dose: 300 mg Glipizide (Glucotrol) 10 mg PO BID [facility] Last Admin: 08/24/17 09:36 Dose: 10 mg Insulin Aspart (Novolog) 0 unit SC ACHS [facility] PRN Reason: Protocol Last Admin: 08/24/17 16:23 Dose: 3 unit Ketoconazole (Nizoral) 0 gm TOP BID [facility] Last Admin: 08/24/17 09:38 Dose: 1 applic [facility] Last Admin: 08/24/17 16:22 Dose: 1,000 mg Nitroglycerin (Nitro-Bid 2% Oint) 1 ea TOP 1200 PRN PRN Reason: Systolic Blood Pressure Oxycodone HCl (Oxycodone Immediate Release Tab) 5 mg PO Q6H PRN PRN Reason: Pain, moderate (4-7) Potassium Chloride (Klor-Con 10) 10 meq PO DAILY [facility] Last Admin: 08/24/17 09:36 Dose: 10 meq Raltegravir (Isentress) 400 mg PO BID [facility] Last Admin: 08/24/17 09:53 Dose: 400 mg Rosuvastatin Calcium (Crestor) 20 mg PO HS [facility] Last Admin: 08/23/17 21:42 Dose: 20 mg Tamsulosin HCl (Flomax) 0.4 mg PO DAILY [facility] Last Admin: 08/24/17 09:37 Dose: 0.4 mg Timolol Maleate (Timoptic 0.5% [facility]) 0 drop OU BID [facility] Last Admin: 08/24/17 09:39 Dose: 1 drop - Labs Labs: 08/24/17 06:29 08/24/17 06:29 PT 11.6 SECONDS (9.7-12.2) 08/23/17 07:01 INR 1.0 08/23/17 07:01 APTT 31 SECONDS (21-34) 08/23/17 07:01
--- NOTE | 2017-08-24 21:21 | CP.PCM.PN ---
Subjective - Date & Time of Evaluation Date of Evaluation: 08/23/17 Time of Evaluation: 15:05 - Subjective Subjective: Patient seen and evaluated Denies chest pain and dyspnea s/p CEA No cardiac events noted Objective - Vital Signs/Intake and Output Vital Signs (last 24 hours): Temp Pulse Resp BP Pulse Ox 98.1 F 66 13 113/56 L 96 08/24/17 20:00 08/24/17 20:00 08/24/17 20:00 08/24/17 20:00 08/24/17 20:00 Intake and Output: 08/24/17 08/25/17 18:59 06:59 Intake Total 1320 0 Output Total 900 0 Balance 420 0 - Medications Medications: Current Medications Aspirin (Aspirin Chewable) 81 mg PO DAILY [facility] Last Admin: 08/24/17 09:36 Dose: 81 mg Brimonidine Tartrate (Alphagan 0.2% Opht) 0 ml OU BID [facility] Last Admin: 08/24/17 17:47 Dose: 1 drop Donepezil HCl (Aricept) 10 mg PO DAILY [facility] Last Admin: 08/24/17 09:37 Dose: 10 mg Enoxaparin Sodium (Lovenox) 40 mg SC DAILY [facility] Last Admin: 08/24/17 09:35 Dose: 40 mg Fenofibrate (Tricor) 145 mg PO DAILY [facility] Last Admin: 08/24/17 09:37 Dose: 145 mg Ferrous Sulfate (Feosol) 325 mg PO DAILY [facility] Last Admin: 08/24/17 09:37 Dose: 325 mg Furosemide (Lasix) 20 mg PO DAILY [facility] Last Admin: 08/24/17 09:37 Dose: 20 mg Gabapentin (Neurontin) 300 mg PO BID [facility] Last Admin: 08/24/17 17:48 Dose: 300 mg Glipizide (Glucotrol) 10 mg PO BID [facility] Last Admin: 08/24/17 17:48 Dose: 10 mg Insulin Aspart (Novolog) 0 unit SC [facility] PRN Reason: Protocol Last Admin: 08/24/17 16:23 Dose: 3 unit Ketoconazole (Nizoral) 0 gm TOP BID [facility] Last Admin: 08/24/17 17:47 Dose: 1 applic [facility] Admin: 08/24/17 16:22 Dose: 1,000 mg Nitroglycerin (Nitro-Bid 2% Oint) 1 ea TOP 1200 PRN PRN Reason: Systolic Blood Pressure Oxycodone HCl (Oxycodone Immediate Release Tab) 5 mg PO Q6H PRN PRN Reason: Pain, moderate (4-7) Potassium Chloride (Klor-Con 10) 10 meq PO DAILY [facility] Last Admin: 08/24/17 09:36 Dose: 10 meq Raltegravir (Isentress) 400 mg PO BID [facility] Last Admin: 08/24/17 17:48 Dose: 400 mg Rosuvastatin Calcium (Crestor) 20 mg PO HS [facility] Last Admin: 08/23/17 21:42 Dose: 20 mg Tamsulosin HCl (Flomax) 0.4 mg PO DAILY [facility] Last Admin: 08/24/17 09:37 Dose: 0.4 mg Timolol Maleate (Timoptic 0.5% Ophth Soln) 0 drop OU BID [facility] Last Admin: 08/24/17 17:47 Dose: 1 drop - Labs Labs: 08/24/17 06:29 08/24/17 06:29 PT 11.6 SECONDS (9.7-12.2) 08/23/17 07:01 INR 1.0 08/23/17 07:01 APTT 31 SECONDS (21-34) 08/23/17 07:01
[2017-08-25] MEDS: (Novolog) Insulin Aspart, Recombinant 100 u/ml 10 ml vial SC SCH ×2 (09:24→12:27)
[2017-08-25] MEDS: Enoxaparin 40 mg Syringe SC SCH (09:26)
[2017-08-25] MEDS: Brimonidine 0.2% Opth Sol (5ml) OU SCH (09:31)
[2017-08-25] MEDS: Potassium Chloride 10 mEq ER Tab PO SCH (09:34)
--- NOTE | 2017-08-25 09:49 | CP.PCM.PN ---
Subjective - Date & Time of Evaluation Date of Evaluation: 08/25/17 Time of Evaluation: 09:30 - Subjective Subjective: Vascular Surgery Note for Dr. Umaña Patient seen and examined today at bedside. No acute event overnight. Patient is s/p Right CEA POD#2. He is tolerating diet. Patient has no complaints. Objective - Vital Signs/Intake and Output Vital Signs (last 24 hours): Temp Pulse Resp BP Pulse Ox 98.6 F 74 10 L 142/59 L 100 08/25/17 08:00 08/25/17 08:47 08/25/17 08:47 08/25/17 09:22 08/25/17 08:47 Intake and Output: 08/25/17 08/25/17 06:59 18:59 Intake Total 120 400 Output Total 350 1000 Balance -230 -600 - Medications Medications: Current Medications Aspirin (Aspirin Chewable) 81 mg PO DAILY [facility] Last Admin: 08/25/17 09:34 Dose: 81 mg Brimonidine Tartrate (Alphagan 0.2% Opht) 0 ml OU BID [facility] Last Admin: 08/25/17 09:31 Dose: 1 drop Donepezil HCl (Aricept) 10 mg PO DAILY [facility] Last Admin: 08/25/17 09:22 Dose: 10 mg Enoxaparin Sodium (Lovenox) 40 mg SC DAILY [facility] Last Admin: 08/25/17 09:26 Dose: 40 mg Fenofibrate (Tricor) 145 mg PO DAILY [facility] Last Admin: 08/25/17 09:23 Dose: 145 mg Ferrous Sulfate (Feosol) 325 mg PO DAILY [facility] Last Admin: 08/25/17 09:23 Dose: 325 mg Furosemide (Lasix) 20 mg PO DAILY [facility] Last Admin: 08/25/17 09:22 Dose: 20 mg Gabapentin (Neurontin) 300 mg PO BID [facility] Last Admin: 08/25/17 09:23 Dose: 300 mg Glipizide (Glucotrol) 10 mg PO BID [facility] Last Admin: 08/25/17 09:23 Dose: 10 mg Insulin Aspart (Novolog) 0 unit SC ACHS [facility] PRN Reason: Protocol Last Admin: 08/25/17 09:24 Dose: 2 unit Ketoconazole (Nizoral) 0 gm TOP BID [facility] Last Admin: 08/25/17 09:25 Dose: 1 applic Metformin HCl (Glucophage) 1,000 mg PO BIDCC [facility] Last Admin: 08/25/17 09:00 Dose: 1,000 mg Nitroglycerin (Nitro-Bid 2% Oint) 1 ea TOP 1200 PRN PRN Reason: Systolic Blood Pressure Oxycodone HCl (Oxycodone Immediate Release Tab) 5 mg PO Q6H PRN PRN Reason: Pain, moderate (4-7) Potassium Chloride (Klor-Con 10) 10 meq PO DAILY [facility] Last Admin: 08/25/17 09:34 Dose: 10 meq Raltegravir (Isentress) 400 mg PO BID [facility] Last Admin: 08/25/17 09:23 Dose: 400 mg Rosuvastatin Calcium (Crestor) 20 mg PO HS [facility] Last Admin: 08/24/17 22:26 Dose: 20 mg Tamsulosin HCl (Flomax) 0.4 mg PO DAILY [facility] Last Admin: 08/25/17 09:22 Dose: 0.4 mg Timolol Maleate (Timoptic 0.5% Ophth Soln) 0 drop OU BID [facility] Last Admin: 08/25/17 09:27 Dose: 1 drop - Labs Labs: 08/24/17 06:29 08/24/17 06:29 PT 11.6 SECONDS (9.7-12.2) 08/23/17 07:01 INR 1.0 08/23/17 07:01 APTT 31 SECONDS (21-34) 08/23/17 07:01 - Constitutional Appears: No Acute Distress - Head Exam Head Exam: ATRAUMATIC, NORMOCEPHALIC - Eye Exam Eye Exam: EOMI, Normal appearance Pupil Exam: PERRL - ENT Exam ENT Exam: Mucous Membranes Moist - Neck Exam Additional comments: surgical dressing clean dry and intact - Respiratory Exam Respiratory Exam: NORMAL BREATHING PATTERN - Cardiovascular Exam Cardiovascular Exam: REGULAR RHYTHM - GI/Abdominal Exam GI & Abdominal Exam: Soft, Normal Bowel Sounds. absent: Tenderness - Neurological Exam Neurological Exam: Alert, Awake, CN II-XII Intact, Oriented x3 Neuro motor strength exam: Left Upper Extremity: 5, Right Upper Extremity: 5, Left Lower Extremity: 5, Right Lower Extremity: 5 Additional comments: no motor or sensory deficits - Psychiatric Exam Psychiatric exam: Normal Affect, Normal Mood - Skin Skin Exam: Dry, Intact, Normal Color, Warm Assessment and Plan - Assessment and Plan (Free Text) Plan: 77 M s/p Right CEA POD#2 -Patient clear for discharge from surgical standpoint -Keep area clean, dry, and intact -Follow up with Dr. Umaña as outpatient within 1 week -Discussed with Dr. Leeroy Cuevas PGY1
[2017-08-25 13:44] VITALS: BP 112/48; PULSE 65; RESP 17; TEMP 98; O2SAT 96
--- NOTE | 2017-08-25 14:03 | CP.PCM.DIS ---
Provider - Provider Date of Admission: 08/21/17 12:16 Attending physician: Vero Ruiz MD Time Spent in preparation of Discharge (in minutes): 35 Hospital Course - Lab Results Lab Results: Micro Results 08/23/17 17:20 Naris MRSA Culture (Admit) - Final MRSA NOT DETECTED Most Recent Lab Values WBC 8.3 K/uL (4.8-10.8) 08/24/17 06:29 RBC 4.26 Mil/uL (4.40-5.90) L 08/24/17 06:29 Hgb 12.8 g/dL (12.0-18.0) 08/24/17 06:29 Hct 37.2 % (35.0-51.0) 08/24/17 06:29 MCV 87.2 fL (80.0-94.0) 08/24/17 06:29 MCH 30.0 pg (27.0-31.0) 08/24/17 06:29 MCHC 34.4 g/dL (33.0-37.0) 08/24/17 06:29 RDW 14.5 % (11.5-14.5) 08/24/17 06:29 Plt Count 143 K/uL (130-400) 08/24/17 06:29 MPV 10.7 fL (7.2-11.7) 08/24/17 06:29 Neut % (Auto) 57.8 % (50.0-75.0) 08/24/17 06:29 Lymph % (Auto) 30.5 % (20.0-40.0) 08/24/17 06:29 [place] % (Auto) 10.3 % (0.0-10.0) H 08/24/17 06:29 Eos % (Auto) 1.1 % (0.0-4.0) 08/24/17 06:29 Baso % (Auto) 0.3 % (0.0-2.0) 08/24/17 06: Neut # 4.8 K/uL (1.8-7.0) 08/24/17 06: Lymph # 2.5 K/uL (1.0-4.3) 08/24/17 06:29 [place] # 0.9 K/uL (0.0-0.8) H 08/24/17 06:29 Eos # 0.1 K/uL (0.0-0.7) 08/24/17 06:29 Baso # 0.0 K/uL (0.0-0.2) 08/24/17 06:29 PT 11.6 SECONDS (9.7-12.2) 08/23/17 07:01 INR 1.0 08/23/17 07:01 APTT 31 SECONDS (21-34) 08/23/17 07:01 Sodium 134 mmol/L (132-148) 08/24/17 06:29 Potassium 3.9 mmol/L (3.6-5.2) 08/24/17 06:29 Chloride 104 mmol/L (98-107) 08/24/17 06:29 Carbon Dioxide 23 mmol/L (22-30) 08/24/17 06:29 Anion Gap 11 (10-20) 08/24/17 06:29 BUN 16 mg/dL (9-20) 08/24/17 06:29 Creatinine 0.8 mg/dL (0.8-1.5) 08/24/17 06:29 Est GFR ( Amer) > 60 08/24/17 06:29 Est GFR (Non-Af Amer) > 60 08/24/17 06:29 POC Glucose (mg/dL) 173 mg/dL (65-110) H 08/25/17 11:59 Random Glucose 173 mg/dL (75-110) H 08/24/17 06:29 Calcium 8.2 mg/dl (8.6-10.4) L 08/24/17 06:29 Phosphorus 3.0 mg/dL (2.5-4.5) 08/24/17 06:29 Magnesium 1.8 mg/dL (1.6-2.3) 08/24/17 06:29 Total Bilirubin 0.4 mg/dL (0.2-1.3) 08/23/17 07:01 AST 20 U/L (17-59) 08/23/17 07:01 ALT 23 U/L (21-72) 08/23/17 07:01 Alkaline Phosphatase 45 U/L (38-126) 08/23/17 07:01 CK-MB (Mass) 3.59 ng/mL (0.0-3.38) H 08/21/17 11:39 Troponin I < 0.0120 ng/mL (0.00-0.120) 08/21/17 11:39 Total Protein 6.5 g/dL (6.3-8.3) 08/23/17 07:01 Albumin 3.7 g/dL (3.5-5.0) 08/23/17 07:01 Globulin 2.8 gm/dL (2.2-3.9) 08/23/17 07:01 Albumin/Globulin Ratio 1.3 (1.0-2.1) 08/23/17 07:01 Urine Color Yellow (YELLOW) 08/21/17 11:54 Urine Clarity Clear (Clear) 08/21/17 11:54 Urine pH 5.0 (5.0-8.0) 08/21/17 11:54 Ur Specific [place] 1.016 (1.003-1.030) 08/21/17 11:54 Urine Protein Negative mg/dL (NEGATIVE) 08/21/17 11:54 Urine Glucose (UA) 3+ mg/dL (Normal) H 08/21/17 11:54 Urine Ketones Negative mg/dL (NEGATIVE) 08/21/17 11:54 Urine Blood Negative (NEGATIVE) 08/21/17 11:54 Urine Nitrate Negative (NEGATIVE) 08/21/17 11:54 Urine Bilirubin Negative (NEGATIVE) 08/21/17 11:54 Urine Urobilinogen Normal mg/dL (0.2-1.0) 08/21/17 11:54 Ur Leukocyte Esterase Neg [place]/uL (Negative) 08/21/17 11:54 Urine WBC (Auto) 1 /hpf (0-5) 08/21/17 11:54 Urine RBC (Auto) < 1 /hpf (0-3) 08/21/17 11:54 Urine Bacteria Rare (<OCC) 08/21/17 11:54 Blood Type O NEGATIVE 08/22/17 19:35 Antibody Screen Negative 08/22/17 19:35 Discharge Exam - Head Exam Head Exam: ATRAUMATIC, NORMAL INSPECTION, NORMOCEPHALIC Discharge Plan - Follow Up Plan Condition: GUARDED Disposition: HOME/ ROUTINE
--- NOTE | 2017-08-25 14:49 | CARDCATH ---
PROCEDURE DATE: 08/22/2017 PROCEDURES: 1. Left heart catheterization. 2. Coronary angiogram. 3. Aortic root angiogram. 4. Radiological supervision and radiological interpretation of the left heart catheterization, coronary angiogram and aortic root angiogram. REFERRING PHYSICIAN: Lavelle Villatoro MD. PERFORMING PHYSICIAN: Dusty Jones MD. CLINICAL INDICATIONS: 1. Unstable angina. 2. Critical carotid artery disease. 3. Preop cardiac risk assessment. The patient is not a candidate for stress test. PROCEDURE: After informed consent, the patient was prepped and draped in the usual sterile fashion. 2% lidocaine was given in the right wrist for local anesthesia. Using micropuncture technique, 6-Danish sheath was introduced into right radial artery. JR4 6-Danish diagnostic catheter crossed into left ventricle across the aortic valve. Contrast injected and LV angiogram was performed. LV end diastolic pressure measured. Catheter was pulled back across the aortic valve. Gradient across the aortic valve was measured. The same catheter engaged into the right coronary artery, contrast injected and right coronary angiogram was performed. The catheter was exchanged to 5-Danish [place] catheter. The catheter engaged into left main coronary artery. Contrast injected and left coronary angiogram was performed. Aortic root angiogram was performed using [place] catheter. Post procedure, the catheter was pulled back. Terumo radial sheath applied to right wrist with excellent hemostasis. FINDINGS: 1. Left main coronary artery is patent. 2. Proximal and distal LAD are patent. Mid LAD has a 40% nonobstructive stenosis. Diagonal branches are patent. 3. Left circumflex is large and dominant. Left circumflex coronary artery is patent. 4. Right coronary artery is small, nondominant. Proximal right coronary artery has 60% nonobstructive stenosis. 5. LV ejection fraction is approximately 70%. No wall motion abnormalities noted. There is no gradient across the aortic valve. LV end diastolic pressure is 14. Aortic root angiogram confirmed no aortic dissection or aortic aneurysm. CONCLUSION: 1. Nonobstructive coronaries. 2. Normal left ventricular systolic function. Dusty Jones MD
--- NOTE | 2017-08-25 22:59 | CP.PCM.PN ---
Subjective - Date & Time of Evaluation Date of Evaluation: 08/25/17 Time of Evaluation: 10:15 - Subjective Subjective: Patient seen and evaluated S/P CEA No cardiac events For d/c today Follow up with Dr. Villatoro Objective - Vital Signs/Intake and Output Vital Signs (last 24 hours): Temp Pulse Resp BP Pulse Ox 98 F 65 17 112/48 L 96 08/25/17 12:00 08/25/17 12:00 08/25/17 12:00 08/25/17 12:00 08/25/17 12:00 Intake and Output: 08/25/17 08/26/17 18:59 06:59 Intake Total 700 Output Total 1000 Balance -300 - Labs Labs: 08/24/17 06:29 08/24/17 06:29 PT 11.6 SECONDS (9.7-12.2) 08/23/17 07:01 INR 1.0 08/23/17 07:01 APTT 31 SECONDS (21-34) 08/23/17 07:01
--- NOTE | 2017-08-26 07:46 | OP ---
PROCEDURE DATE: 08/23/2017 PREOPERATIVE DIAGNOSIS: Transient ischemic attack, syncope. PROCEDURE: Right carotid endarterectomy. SURGEON: Jeffy Umaña Jr., MD. SALES MERCHANDISER: . ANESTHESIOLOGIST: Dr. Krishnamurthy. INDICATIONS: Patient is a 77-year-old man with multiple deficiency problems, who presents with dizziness and near syncopal event. He underwent cardiac evaluation and subsequently found on evaluation of a high grade stenosis approximately 99% of the right internal carotic artery. OPERATIVE FINDINGS: 1. The internal carotid artery is very diminutive. 2. The common external artery is unremarkable. There was a thick plaque beginning at the and extending up to the origin of the internal. At the end of the procedure, the patient awoke, intact, moving all fours without any overt deficit. DESCRIPTION OF PROCEDURE: Patient was given general anesthesia, intravenous antibiotics. Venodyne boots were applied. Standard skin preparation was carried out. An incision was made exposing the common internal and external carotid arteries. After exposure of the vessels, heparin was given. A [place] shunt was placed and a standard endarterectomy was carried out. There was a clean endpoint in the internal carotid artery. After completion of this and application of a bovine patch, we closed the wounds with subcuticular closure and Steri-Strips and left a small tissue ____ wound. Blood loss for the procedure was approximately 100 to 150 mL. So, the operation carried out was right carotid endarterectomy with placement of patch. Jeffy Umaña Jr., MD cc: [address] Michael Dr.
== END 2017-08-25 15:27 | disposition home or self-care (01) | DRG 38 ==
LOC: C.ER 10:36 → C.9E 12:16 → C.6T 21:52 → C.9I 08-23 16:39
PROVIDERS: ADMIT Internal Medicine Critical Care Medicine; ATTEND Internal Medicine Critical Care Medicine
PROC: 4A023N7 Measurement of Cardiac Sampling and Pressure, Left Heart, Percutaneous Approach (ICD-10-PCS; principal; 2017-08-22)
PROC: B2111ZZ Fluoroscopy of Multiple Coronary Arteries using Low Osmolar Contrast (ICD-10-PCS; 2017-08-22)
PROC: B2151ZZ Fluoroscopy of Left Heart using Low Osmolar Contrast (ICD-10-PCS; 2017-08-22)
PROC: 03CK0ZZ Extirpation of Matter from Right Internal Carotid Artery, Open Approach (ICD-10-PCS; 2017-08-23)
PROC: 03UK0JZ Supplement Right Internal Carotid Artery with Synthetic Substitute, Open Approach (ICD-10-PCS; 2017-08-23)
DX: I65.21 Occlusion and stenosis of right carotid artery (principal); I25.110 Atherosclerotic heart disease of native coronary artery with unstable angina pectoris; E11.51 Type 2 diabetes mellitus with diabetic peripheral angiopathy without gangrene; I10 Essential (primary) hypertension; E78.00 Pure hypercholesterolemia, unspecified; H91.92 Unspecified hearing loss, left ear; Z86.73 Personal history of transient ischemic attack (TIA), and cerebral infarction without residual deficits; Z83.3 Family history of diabetes mellitus; Z21 Asymptomatic human immunodeficiency virus [HIV] infection status

== ENCOUNTER 2018-06-10 11:30 | Inpatient (IN) | payer OTHER ==
[2018-06-10] MEDS ORDERED: Sodium Chloride 0.9% 1,000 ML IV ONE (12:41)
[2018-06-10 13:11] LABS: BASO % 0.4 % (0.0-2.0); EOS # 0.2 K/uL (0.0-0.7); EOS % 1.8 % (0.0-4.0); HEMOGLOBIN 14.1 g/dL (12.0-18.0); LYMPH # 2.9 K/uL (1.0-4.3); LYMPH % 31.8 % (20.0-40.0); MEAN CELL VOLUME 88.7 fL (80.0-94.0); MEAN CORPUSCULAR HEMOGLOBIN 30.3 pg (27.0-31.0); MEAN CORPUSCULAR HGB CONC 34.2 g/dL (33.0-37.0); MEAN PLATELET VOLUME 10.4 fL (7.2-11.7); MONO # 0.9 K/uL (0.0-0.8); MONO % 10.1 % (0.0-10.0); NEUT # 5.1 K/uL (1.8-7.0); NEUT % 55.9 % (50.0-75.0); RBC 4.65 Mil/uL (4.40-5.90); WHITE BLOOD COUNT 9.1 K/uL (4.8-10.8)
[2018-06-10 13:20] LABS: PROTHROMBIN TIME 11.3 SECONDS (9.7-12.2)
[2018-06-10] MEDS ORDERED: Sodium Chloride 0.9% 1,000 ML ONE (13:25)
--- NOTE | 2018-06-10 13:34 | RAD ---
PROCEDURE: Radiographs of the left great toe. TECHNIQUE:: AP radiograph of the left foot, with oblique and lateral view of the left great toe. COMPARISON: None. FINDINGS: BONES: No acute fracture. JOINTS: Normal. SOFT TISSUES: Distal toe soft tissue swelling. OTHER FINDINGS: None. IMPRESSION: No demonstrated fracture or dislocation.
[2018-06-10 13:35] LABS: ALB/GLOB RATIO 1.2 (1.0-2.1); ALBUMIN 4.5 g/dL (3.5-5.0); ALT/SGPT 43 U/L (21-72); AST/SGOT 31 U/L (17-59); BLOOD UREA NITROGEN 31 mg/dL (9-20); CALCIUM 10.7 mg/dl (8.6-10.4); GFR NON-AFRICAN AMERICAN > 60
[2018-06-10] MEDS ORDERED: Piperacillin/Tazobact 3.375 gm 100 ML IV STA (14:01)
--- NOTE | 2018-06-10 14:02 | C.PDOC ---
History Of Present Illness 77 yo male w/PMHx of HIV, IDDM, HTN comes in for evaluation of left big toe open wound, non-healing, noted some discharge, increase pain since yesterday. Otherwise, pt denies fever, chills, known trauma or injury, CP, SOB, dyspnea, cough, abd. pain, N/V, denies deformity, weakness, sensory or vascular deficits to left leg. Ambulate to Ed w/assistance of walker. Time Seen by Provider: 06/10/18 12:30 Chief Complaint (Nursing): Abnormal Skin Integrity History Per: Patient Past Medical History Reviewed: Historical Data, Nursing Documentation, Vital Signs Vital Signs: Last Vital Signs Temp 97.7 F 06/10/18 11:44 Pulse 80 06/10/18 11:44 Resp 18 06/10/18 11:44 BP 144/74 06/10/18 11:44 Pulse Ox 97 06/10/18 11:44 - Medical History PMH: Diabetes, HIV, HTN, Hypercholesterolemia Denies: Chronic Kidney Disease - [facility] Procedures EXTIRPATION OF MATTER FROM R INT CAROTID, OPEN APPROACH (08/21/17) FLUOROSCOPY OF LEFT HEART USING LOW OSMOLAR CONTRAST (08/21/17) FLUOROSCOPY OF MULT COR ART USING L OSM CONTRAST (08/21/17) MEASURE OF CARDIAC SAMPL & PRESSURE, L HEART, PERC APPROACH (08/21/17) SUPPLEMENT R INT CAROTID WITH SYNTH SUB, OPEN APPROACH (08/21/17) Family History: States: Unknown Family Hx - Social History Hx Alcohol Use: No Hx Substance Use: No - Immunization History Hx Tetanus Toxoid Vaccination: No Hx Influenza Vaccination: Yes Hx Pneumococcal Vaccination: No Review Of Systems Except As Marked, All Systems Reviewed And Found Negative. Constitutional: Negative for: Fever, Chills ENT: Negative for: Throat Pain Cardiovascular: Negative for: Chest Pain Respiratory: Negative for: Cough, Shortness of Breath Gastrointestinal: Negative for: Nausea, Vomiting, Abdominal Pain Musculoskeletal: Positive for: Foot Pain Skin: Positive for: Lesions Neurological: Negative for: Weakness, Numbness, Altered Mental Status, Headache, Dizziness Physical Exam - Physical Exam Appears: Well, Non-toxic, No Acute Distress Skin: Normal Color, Warm, Dry, Other (left big toe small open wound tip of toe 3cm diameter, mild yellow discahrges noted. B/L feet dry skin noted with diffuse onychomycosis.) Head: Normacephalic Eye(s): bilateral: PERRL Nose: No Flaring, No Discharge Oral Mucosa: Moist Tongue: Normal Appearing Lips: Normal Appearing Throat: No Erythema, No Drooling Neck: Trachea Midline, Supple Cardiovascular: Rhythm Regular, No Murmur, No JVD Respiratory: No Decreased Breath Sounds, No Accessory Muscle Use, No Stridor, No Wheezing Gastrointestinal/Abdominal: Soft, No Tenderness, No Distention, No Guarding, No Rebound Back: No CVA Tenderness Extremity: Normal ROM (left foot/ankle), Tenderness (left 1st toe), No Calf Tenderness, Capillary Refill (less than 2sec to left foot), No Deformity, Swelling (mild edema left big toe with erythema, proximal streaking noted dorsal aepct left foot from left big to extend to ankle.) Neurological/Psych: Oriented x3, Normal Speech, Normal Motor, Normal Sensation, Normal Reflexes ED Course And Treatment - Laboratory Results Result Diagrams: 06/10/18 13:05 06/10/18 13:05 Lab Interpretation: No Acute Changes O2 Sat by Pulse Oximetry: 97 Pulse Ox Interpretation: Normal - Other Rad Left foot X-Ray: Interpreted by Me, Viewed By Me Interpretation: no acute fx/osteo - CT Scan/US Doppler US LLE Other Rad Studies (CT/US): Radiology Report Reviewed CT/US Interpretation: (-) DVT left LE Progress Note: case discussed with and admission arranged with Dx: left foot cellulitis with open wound, IDDM. Disposition Counseled Patient/Family Regarding: Diagnosis, Need For Followup - Disposition Disposition: HOSPITALIZED Disposition Time: 14:00 Condition: STABLE - Clinical Impression Clinical Impression: Cellulitis, Foot ulcer due to secondary DM
[2018-06-10 14:08] LABS: SQUAMOUS EPITHIAL < 1 /hpf (0-5); URINE BILIRUBIN NEGATIVE (NEGATIVE); URINE BLOOD NEGATIVE (NEGATIVE); URINE CLARITY Clear (Clear); URINE COLOR Yellow (YELLOW); URINE GLUCOSE (UA) 3+ mg/dL (Normal); URINE LEUKOCYTE ESTERASE NEG Leu/uL (Negative); URINE PROTEIN NEGATIVE (NEGATIVE); URINE UROBILINOGEN NORMAL mg/dL (0.2-1.0)
[2018-06-10] MEDS ORDERED: Piperacillin/Tazobact 3.375 gm 100 ML IVPB ONE (14:21)
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
[2018-06-10] MEDS: Piperacill/Tazo 3.375gm in Dex 3.375 GM/50 ML BAG IVPB SCH (19:46)
[2018-06-10] MEDS: Omega-3-Acid Ethyl Esters 1 GM Cap PO SCH (19:53)
[2018-06-10] MEDS ORDERED: Dextrose 50% SYRINGE Inj (50 ml) IV PRN (20:34)
[2018-06-10] MEDS ORDERED: Glucagon Recombinant 1 mg Inj IM PRN (20:34)
[2018-06-10] MEDS: (Novolin R) Insulin Human Regular 100 units/ml vial SC SCH (21:11)
[2018-06-10] MEDS: (Lantus) Insulin Glargine, Recombinant SC SCH (21:57)
[2018-06-10] MEDS: Latanoprost 2.5 ml Opht Soln OU SCH (21:59)
[2018-06-11 00:48] VITALS: RESP 20
[2018-06-11] MEDS: Piperacill/Tazo 3.375gm in Dex 3.375 GM/50 ML BAG IVPB SCH ×3 (02:17→19:52)
[2018-06-11 07:12] LABS: BASO % 0.3 % (0.0-2.0); EOS # 0.2 K/uL (0.0-0.7); EOS % 2.5 % (0.0-4.0); HEMOGLOBIN 12.7 g/dL (12.0-18.0); LYMPH # 1.7 K/uL (1.0-4.3); LYMPH % 23.8 % (20.0-40.0); MEAN CELL VOLUME 88.9 fL (80.0-94.0); MEAN CORPUSCULAR HEMOGLOBIN 30.1 pg (27.0-31.0); MEAN CORPUSCULAR HGB CONC 33.9 g/dL (33.0-37.0); MEAN PLATELET VOLUME 10.2 fL (7.2-11.7); MONO # 0.8 K/uL (0.0-0.8); NEUT # 4.2 K/uL (1.8-7.0); NEUT % 61.4 % (50.0-75.0); RBC 4.22 Mil/uL (4.40-5.90); RED CELL DISTRIBUTION WIDTH 13.9 % (11.5-14.5); WHITE BLOOD COUNT 6.9 K/uL (4.8-10.8)
[2018-06-11 07:27] LABS: ALB/GLOB RATIO 1.3 (1.0-2.1); ALBUMIN 3.8 g/dL (3.5-5.0); ALT/SGPT 39 U/L (21-72); AST/SGOT 22 U/L (17-59); BLOOD UREA NITROGEN 26 mg/dL (9-20); CALCIUM 9.7 mg/dl (8.6-10.4); GFR NON-AFRICAN AMERICAN > 60
[2018-06-11] MEDS: (Novolin R) Insulin Human Regular 100 units/ml vial SC SCH ×4 (08:54→21:49)
[2018-06-11] MEDS: Omega-3-Acid Ethyl Esters 1 GM Cap PO SCH ×2 (09:24→17:40)
[2018-06-11] MEDS: Brimonidine 0.2% Opth Sol (5ml) OU SCH ×2 (09:27→17:42)
[2018-06-11] MEDS: Ammonium Lactate 12% Lotion (225 g) TOP SCH ×2 (09:29→18:55)
[2018-06-11] MEDS ORDERED: Potassium Chloride 10 mEq ER Tab PO SCH (10:00)
--- NOTE | 2018-06-11 11:43 | CP.PCM.PN ---
Subjective - Date & Time of Evaluation Date of Evaluation: 06/11/18 Time of Evaluation: 11:42 - Subjective Subjective: Dr Goff Medicine Note Pt seen and examined at bedside. no complaints overnight. still has no sensation from shimns down bilaterally in all dermatomes. chronic. Pt denies fc nv cp sob. Objective - Vital Signs/Intake and Output Vital Signs (last 24 hours): Temp Pulse Resp BP Pulse Ox 98.5 F 71 20 135/77 96 06/11/18 07:39 06/11/18 07:39 06/11/18 07:39 06/11/18 09:23 06/11/18 07:39 Intake and Output: 06/11/18 06/11/18 06:59 18:59 Intake Total 400 300 Balance 400 300 - Medications Medications: Current Medications Aspirin (Aspirin Chewable) 81 mg PO DAILY [facility] Last Admin: 06/11/18 09:24 Dose: 81 mg Brimonidine Tartrate (Alphagan 0.2% Opht) 1 ml OU BID [facility] Last Admin: 06/11/18 09:27 Dose: 1 drop Clopidogrel Bisulfate (Plavix) 75 mg PO DAILY [facility] Last Admin: 06/11/18 09:23 Dose: 75 mg Darunavir (Prezista) 800 mg PO DAILY [facility]; Protocol Last Admin: 06/11/18 09:26 Dose: 800 mg Dextrose (Dextrose 50% Inj) 0 ml IV STAT PRN; Protocol PRN Reason: Hypoglycemia Protocol Dextrose (Glutose 15) 0 gm PO ONCE PRN; Protocol PRN Reason: Hypoglycemia Protocol Donepezil HCl (Aricept) 10 mg PO DAILY [facility] Last Admin: 06/11/18 09:25 Dose: 10 mg Famotidine (Pepcid) 40 mg PO DAILY [facility] Last Admin: 06/11/18 09:25 Dose: 40 mg Fenofibrate (Tricor) 145 mg PO DAILY [facility] Last Admin: 06/11/18 09:26 Dose: 145 mg Ferrous Sulfate (Feosol) 325 mg PO DAILY [facility] Last Admin: 06/11/18 09:25 Dose: 325 mg Finasteride (Proscar) 5 mg PO DAILY [facility] Furosemide (Lasix) 20 mg PO DAILY [facility] Last Admin: 06/11/18 09:23 Dose: 20 mg Gabapentin (Neurontin) 300 mg PO BID [facility] Last Admin: 06/11/18 09:25 Dose: 300 mg Glipizide (Glucotrol) 10 mg PO BID [facility] Last Admin: 06/11/18 09:23 Dose: 10 mg Glucagon (Glucagen Diagnostic Kit) 0 mg IM STAT PRN; Protocol PRN Reason: Hypoglycemia Protocol Heparin Sodium (Porcine) (Heparin) 5,000 units SC Q12 [facility] Last Admin: 06/11/18 09:27 Dose: 5,000 units Piperacillin Sod/Tazobactam Sod (Zosyn 3.375 Gm Iv Premix) 3.375 gm in 50 mls @ 100 mls/hr IVPB Q8H [facility]; Protocol Last Admin: 06/11/18 02:17 Dose: 100 mls/hr Dextrose (Dextrose 5% In Water 1000 Ml) 1,000 mls @ 0 mls/hr IV .Q0M PRN; Protocol PRN Reason: Hypoglycemia Protocol Influenza Virus Vaccine (Fluzone Quad [id number]) 60 mcg IM .ONCE ONE Stop: 06/13/18 10:01 Insulin Glargine (Lantus) 25 unit SC HS [facility] Last Admin: 06/10/18 21:57 Dose: 25 unit Insulin Human Regular (Novolin R) 0 unit SC ACHS [facility]; Protocol Last Admin: 06/11/18 08:54 Dose: 1 units Lactic Acid (Lac-Hydrin 12% Lotion (225 G)) 0 gm TOP BID [facility] Last Admin: 06/11/18 09:29 Dose: 1 applic Latanoprost (Xalatan Opht) 0 ml OU HS [facility] Last Admin: 06/10/18 21:59 Dose: 2.5 ml Metformin HCl (Glucophage) 1,000 mg PO BID [facility] Last Admin: 06/11/18 09:24 Dose: 1,000 mg Nitroglycerin (Nitrostat Sl Tab) 0.4 mg SL DAILY PRN PRN Reason: chest pain [id number] Ethyl Esters (Lovaza) 1 gm PO BID [facility] Last Admin: 06/11/18 09:24 Dose: 1 gm Potassium Chloride (Klor-Con 10) 10 meq PO DAILY [facility] Last Admin: 06/11/18 09:24 Dose: 10 meq Raltegravir (Isentress) 400 mg PO BID [facility]; Protocol Last Admin: 06/11/18 09:26 Dose: 400 mg Repaglinide (Prandin) 2 mg PO BID [facility] Last Admin: 06/11/18 09:26 Dose: 2 mg Ritonavir (Norvir) 100 mg PO DAILY [facility]; Protocol Last Admin: 06/11/18 09:26 Dose: 100 mg Rosuvastatin Calcium (Crestor) 20 mg PO HS [facility] Last Admin: 06/10/18 21:58 Dose: 20 mg Tamsulosin HCl (Flomax) 0.4 mg PO DAILY [facility] Last Admin: 06/11/18 09:23 Dose: 0.4 mg - Labs Labs: 06/11/18 06:47 06/11/18 06:47 PT 11.3 SECONDS (9.7-12.2) 06/10/18 13:05 INR 1.0 06/10/18 13:05 APTT 34 SECONDS (21-34) 06/10/18 13:05 - Additional Findings Additional findings: - Constitutional Appears: Well, No Acute Distress - Head Exam Head Exam: ATRAUMATIC, NORMOCEPHALIC - Eye Exam Eye Exam: EOMI, PERRL - ENT Exam ENT Exam: Mucous Membranes Moist - Respiratory Exam Respiratory Exam: Clear to Auscultation Bilateral, NORMAL BREATHING PATTERN. absent: Rales, Rhonchi, Wheezes - Cardiovascular Exam Cardiovascular Exam: REGULAR RHYTHM, +S1, +S2 - GI/Abdominal Exam GI & Abdominal Exam: Normal Bowel Sounds, Soft. absent: Tenderness - Extremities Exam Extremities exam: Positive for: pedal pulses present. Negative for: joint swelling, pedal edema, tenderness Additional comments: poor muscle strength in LE bilaterally Sensation negligible below the knee peripheral pulses intact bilaterally (radial, PT) L great toe erythematous, edematous. non blanching upon palpation. weight bearing open ulcer upon inferior aspect, 2cmx2.5cm - Back Exam Back exam: absent: CVA tenderness (L), CVA tenderness (R) - Neurological Exam Neurological exam: Alert, CN II-XII Intact, Oriented x3 - Psychiatric Exam Psychiatric exam: Normal Affect, Normal Mood - Skin Skin Exam: Dry, Normal Color, Warm Assessment and Plan - Assessment and Plan (Free Text) Assessment: Assessment: Mr. Tavarez is a 77yo male PMH HIV, DM, HLD, stroke in 2008, bilateral glaucoma, bilateral cataracts, left sided deafness here at [facility] for worsening of diabetic foot ulcer leading to cellulitis. Plan: Cellulitis, left great toe 2/2 Marie stage 3 Diabetic Foot Ulcer Foot XR, left (06/10): no fracture or dislocation LE US Duplex (06/10): no demonstrated DVT - patient remains afebrile, WBC stable-not elevated - Gram Pos cocci wound Cx - Vanco IV 500mg q12, trough tmrw night - Zosyn 3.375mg IVPB q8 empirically - Wound care consulted - Monitor labs and vitals Diabetes Mellitus with Neuropathy - Hgb A1c - home Glargine 24u sc HS - home Metformin 1000mg po bid - home Glipizide 10mg po bid - home Gabapentin 300 po bid - home Aricept 1mg po daily - home KCl 10meq po daily - home Repaglinide 2mg po bid - Accucheck ACHS - ISS low Novolin - hypoglycemia protocol - monitor with AM labs HIV - WBC 6.9 - CD4 count - home Darunavir 800mg po daily - home Raltegravir 400mg po bid - home Ritonavir 100mg po daily Hyperlipidema - home ASA 81mg po daily - home Plavix 75mg po daily - home Fenofibrate 145mg po daily - home Rosuvastatin 20mg po HS Cataracts - home Brimonidine 1ml OU bid - home Latanoprost OU HS Hypertension/BPH - home Lasix 20mg po daily - home Finasteride 5mg po daily - home NTG 0.4mg SL daily prn - home Flomax 0.4mg po daily PPx DVT: Heparin 5000u sc q12, SCDs GI: Pepcid 40mg po daily Diet: HHD, consistent carb - home Ferrous Sulfate 325mg po daily - home [place] 3 1gm po bid d/w Dr. Goff. All medical management per Dr. Goff.
--- NOTE | 2018-06-11 13:44 | VASCLAB ---
Date of service: 06/10/2018 PROCEDURE: Left Lower Extremity Venous Duplex Exam. HISTORY: Left lower leg pain, chronic wound PRIORS: None. TECHNIQUE: Left common femoral, femoral, popliteal and posterior tibial, peroneal and great saphenous veins were evaluated. Flow was assessed with color Doppler, compressibility, assessment of phasic flow and augmentation response. Report prepared by FARHANA Garcia, RVT FINDINGS: LEFT: 1. Common Femoral Vein: 1.1. Compressibility - Fully compressible: Thrombus - None : Flow - Phasic: Augmentation -Normal: Reflux - None. 2. Femoral Vein: 2.1. Compressibility - Fully compressible: Thrombus - None: Flow - Phasic: Augmentation -Normal: Reflux - None. 3. Popliteal Vein: 3.1. Compressibility - Fully compressible: Thrombus - None: Flow - Phasic: Augmentation -Normal: Reflux - None. 4. Posterior Tibial Vein: 4.1. Compressibility - Fully compressible: Thrombus - None: Flow - Phasic: Augmentation -Normal: Reflux - None. 5. Peroneal Vein: 5.1. Compressibility - Fully compressible: Thrombus - None: Flow - Phasic: Augmentation -Normal: Reflux - None. 6. Great Saphenous Vein: 6.1. Compressibility - Fully compressible: Thrombus - None: Flow - Phasic: Augmentation - Normal: Reflux - None. OTHER FINDINGS: IMPRESSION: No evidence of deep or superficial vein thrombosis of the left lower extremity with excellent venous flow. Normal valve function noted of the left side. Normal venous flow noted in the right common femoral vein.
[2018-06-11] MEDS: (Lantus) Insulin Glargine, Recombinant SC SCH (21:51)
[2018-06-11] MEDS: Latanoprost 2.5 ml Opht Soln OU SCH (21:54)
[2018-06-12] MEDS: Piperacill/Tazo 3.375gm in Dex 3.375 GM/50 ML BAG IVPB SCH ×2 (02:03→11:13)
[2018-06-12 06:51] LABS: BASO % 0.6 % (0.0-2.0); EOS # 0.2 K/uL (0.0-0.7); EOS % 2.7 % (0.0-4.0); LYMPH # 3.3 K/uL (1.0-4.3); LYMPH % 43.2 % (20.0-40.0); MEAN CELL VOLUME 87.7 fL (80.0-94.0); MEAN CORPUSCULAR HEMOGLOBIN 30.3 pg (27.0-31.0); MEAN CORPUSCULAR HGB CONC 34.5 g/dL (33.0-37.0); MONO # 0.8 K/uL (0.0-0.8); MONO % 11.1 % (0.0-10.0); NEUT # 3.2 K/uL (1.8-7.0); NEUT % 42.4 % (50.0-75.0); RBC 4.3 Mil/uL (4.40-5.90); RED CELL DISTRIBUTION WIDTH 13.8 % (11.5-14.5); WHITE BLOOD COUNT 7.6 K/uL (4.8-10.8)
[2018-06-12 07:15] LABS: ALB/GLOB RATIO 1.2 (1.0-2.1); ALBUMIN 3.9 g/dL (3.5-5.0); ALT/SGPT 36 U/L (21-72); AST/SGOT 24 U/L (17-59); BLOOD UREA NITROGEN 25 mg/dL (9-20); CALCIUM 9.5 mg/dl (8.6-10.4); GFR NON-AFRICAN AMERICAN > 60
[2018-06-12] MEDS: (Novolin R) Insulin Human Regular 100 units/ml vial SC SCH ×3 (07:50→17:29)
[2018-06-12 08:44] VITALS: O2SAT 95
--- NOTE | 2018-06-12 09:38 | CP.PCM.PN ---
Subjective - Date & Time of Evaluation Date of Evaluation: 06/12/18 Time of Evaluation: 09:36 - Subjective Subjective: Medicine Note Dr Denver Bethea Pt seen and examined at bedside. Pt denies any acute events overnight. Pt denies CP SOB FC NV. Pt had a normal BM and denies urinary chanes. Pt still complains of loss of sensation from midleg down bilaterally in all dermatomes. Objective - Vital Signs/Intake and Output Vital Signs (last 24 hours): Temp Pulse Resp BP Pulse Ox 98.7 F 72 20 131/62 95 06/12/18 08:42 06/12/18 08:42 06/12/18 08:42 06/12/18 08:42 06/12/18 08:42 Intake and Output: 06/12/18 06/12/18 06:59 18:59 Intake Total 300 Balance 300 - Medications Medications: Current Medications Aspirin (Aspirin Chewable) 81 mg PO DAILY [facility] Last Admin: 06/11/18 09:24 Dose: 81 mg Brimonidine Tartrate (Alphagan 0.2% Opht) 1 ml OU BID [facility] Last Admin: 06/11/18 17:42 Dose: 1 drop Clopidogrel Bisulfate (Plavix) 75 mg PO DAILY [facility] Last Admin: 06/11/18 09:23 Dose: 75 mg Darunavir (Prezista) 800 mg PO DAILY [facility]; Protocol Last Admin: 06/11/18 09:26 Dose: 800 mg Dextrose (Dextrose 50% Inj) 0 ml IV STAT PRN; Protocol PRN Reason: Hypoglycemia Protocol Dextrose (Glutose 15) 0 gm PO ONCE PRN; Protocol PRN Reason: Hypoglycemia Protocol Donepezil HCl (Aricept) 10 mg PO DAILY [facility] Last Admin: 06/11/18 09:25 Dose: 10 mg Famotidine (Pepcid) 40 mg PO DAILY [facility] Last Admin: 06/11/18 09:25 Dose: 40 mg Finasteride (Proscar) 5 mg PO DAILY [facility] Last Admin: 06/11/18 13:52 Dose: 5 mg Furosemide (Lasix) 20 mg PO DAILY [facility] Last Admin: 06/11/18 09:23 Dose: 20 mg Glipizide (Glucotrol) 10 mg PO BID [facility] Last Admin: 06/11/18 17:41 Dose: 10 mg Glucagon (Glucagen Diagnostic Kit) 0 mg IM STAT PRN; Protocol PRN Reason: Hypoglycemia Protocol Heparin Sodium (Porcine) (Heparin) 5,000 units SC Q12 [facility] Last Admin: 06/11/18 21:46 Dose: 5,000 units Piperacillin Sod/Tazobactam Sod (Zosyn 3.375 Gm Iv Premix) 3.375 gm in 50 mls @ 100 mls/hr IVPB Q8H [facility]; Protocol Last Admin: 06/12/18 02:03 Dose: 100 mls/hr Dextrose (Dextrose 5% In Water 1000 Ml) 1,000 mls @ 0 mls/hr IV .Q0M PRN; Protocol PRN Reason: Hypoglycemia Protocol Vancomycin HCl 500 mg/ Sodium (Chloride) 100 mls @ 100 mls/hr IVPB Q12H [facility]; Protocol Last Admin: 06/12/18 02:04 Dose: 100 mls/hr Influenza Virus Vaccine (Fluzone Quad [id number]) 60 mcg IM .ONCE ONE Stop: 06/13/18 10:01 Insulin Glargine (Lantus) 25 unit SC HS [facility] Last Admin: 06/11/18 21:51 Dose: 25 unit Insulin Human Regular (Novolin R) 0 unit SC ACHS [facility]; Protocol Last Admin: 06/12/18 07:50 Dose: Not Given Lactic Acid (Lac-Hydrin 12% Lotion (225 G)) 0 gm TOP BID [facility] Last Admin: 06/11/18 18:55 Dose: 1 applic Latanoprost (Xalatan Opht) 0 ml OU HS [facility] Last Admin: 06/11/18 21:54 Dose: 2.5 ml Metformin HCl (Glucophage) 1,000 mg PO BID [facility] Last Admin: 06/11/18 17:40 Dose: 1,000 mg Nitroglycerin (Nitrostat Sl Tab) 0.4 mg SL DAILY PRN PRN Reason: chest pain [id number] Ethyl Esters (Lovaza) 1 gm PO BID [facility] Last Admin: 06/11/18 17:40 Dose: 1 gm Raltegravir (Isentress) 400 mg PO BID [facility]; Protocol Last Admin: 06/11/18 17:43 Dose: 400 mg Repaglinide (Prandin) 2 mg PO BID [facility] Last Admin: 06/11/18 17:41 Dose: 2 mg Ritonavir (Norvir) 100 mg PO DAILY [facility]; Protocol Last Admin: 06/11/18 09:26 Dose: 100 mg Rosuvastatin Calcium (Crestor) 20 mg PO HS [facility] Last Admin: 06/11/18 21:46 Dose: 20 mg Tamsulosin HCl (Flomax) 0.4 mg PO DAILY [facility] Last Admin: 06/11/18 09:23 Dose: 0.4 mg - Labs Labs: 06/12/18 06:45 06/12/18 06:45 PT 11.3 SECONDS (9.7-12.2) 06/10/18 13:05 INR 1.0 06/10/18 13:05 APTT 34 SECONDS (21-34) 06/10/18 13:05 - Additional Findings Additional findings: - Constitutional Appears: Well, No Acute Distress - Head Exam Head Exam: ATRAUMATIC, NORMOCEPHALIC - Eye Exam Eye Exam: EOMI, PERRL - ENT Exam ENT Exam: Mucous Membranes Moist - Respiratory Exam Respiratory Exam: Clear to Auscultation Bilateral, NORMAL BREATHING PATTERN. absent: Rales, Rhonchi, Wheezes - Cardiovascular Exam Cardiovascular Exam: REGULAR RHYTHM, +S1, +S2 - GI/Abdominal Exam GI & Abdominal Exam: Normal Bowel Sounds, Soft. absent: Tenderness - Extremities Exam Extremities exam: Positive for: pedal pulses present. Negative for: joint swelling, pedal edema, tenderness Additional comments: poor muscle strength in LE bilaterally Sensation negligible below the knee peripheral pulses intact bilaterally (radial, PT) L great toe erythematous, edematous. non blanching upon palpation. weight bearing open ulcer upon inferior aspect, 2cmx2.5cm - Back Exam Back exam: absent: CVA tenderness (L), CVA tenderness (R) - Neurological Exam Neurological exam: Alert, CN II-XII Intact, Oriented x3 - Psychiatric Exam Psychiatric exam: Normal Affect, Normal Mood - Skin Skin Exam: Dry, Normal Color, Warm Assessment and Plan - Assessment and Plan (Free Text) Assessment: Mr. Tavarez is a 77yo male PMH HIV, DM, HLD, stroke in 2008, bilateral glaucoma, bilateral cataracts, left sided deafness here at [facility] for worsening of diabetic foot ulcer leading to cellulitis. Plan: Cellulitis, left great toe 2/2 Marie stage 3 Diabetic Foot Ulcer Foot XR, left (06/10): no fracture or dislocation LE US Duplex (10/30): no demonstrated DVT - patient remains afebrile, WBC stable-not elevated - Gram Pos cocci wound Cx sensitive to clinda - Vanco IV 500mg q12, started (06/11) trough 10pm 06/12 - Zosyn 3.375mg IVPB q8 (06/11) empirically - Wound care consulted - Monitor labs and vitals Diabetes Mellitus with Neuropathy - Hgb A1c 10.4 - Glargine 24u sc HS - Metformin 1000mg po bid - Glipizide 10mg po bid - Aricept 1mg po daily - Repaglinide 2mg po bid - Accucheck ACHS - ISS low Novolin - hypoglycemia protocol - monitor with AM labs HIV - WBC 6.9 - CD4 count - Darunavir 800mg po daily - Raltegravir 400mg po bid - Ritonavir 100mg po daily Hyperlipidema - ASA 81mg po daily - Plavix 75mg po daily - Fenofibrate 145mg po daily - Rosuvastatin 20mg po HS Cataracts - Brimonidine 1ml OU bid - Latanoprost OU HS Hypertension/BPH - Lasix 20mg po daily - Finasteride 5mg po daily - NTG 0.4mg SL daily prn - Flomax 0.4mg po daily PPx DVT: Heparin 5000u sc q12, SCDs GI: Pepcid 40mg po daily Diet: HHD, consistent carb [place] 3 1gm po bid d/w Dr. Goff. All medical management per Dr. Goff.
[2018-06-12] MEDS: Brimonidine 0.2% Opth Sol (5ml) OU SCH ×2 (09:47→17:25)
[2018-06-12] MEDS: Omega-3-Acid Ethyl Esters 1 GM Cap PO SCH ×2 (09:47→17:27)
[2018-06-12] MEDS: Ammonium Lactate 12% Lotion (225 g) TOP SCH ×2 (09:48→17:28)
[2018-06-12 16:08] VITALS: BP 129/78; PULSE 76; TEMP 98.3
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
[2018-06-13] MEDS ORDERED: Influenza Vaccine 60 MCG/0.5 ML SYR (3 yr & up) IM ONE (10:00)
== END 2018-06-12 18:45 | disposition home or self-care (01) | DRG 639 ==
LOC: C.ER 11:30 → C.3T 14:01
PROVIDERS: ADMIT Internal Medicine; ATTEND Internal Medicine
DX: E11.628 Type 2 diabetes mellitus with other skin complications (principal); E11.621 Type 2 diabetes mellitus with foot ulcer; L03.032 Cellulitis of left toe; L97.509 Non-pressure chronic ulcer of other part of unspecified foot with unspecified severity; B95.61 Methicillin susceptible Staphylococcus aureus infection as the cause of diseases classified elsewhere; E11.40 Type 2 diabetes mellitus with diabetic neuropathy, unspecified; E11.51 Type 2 diabetes mellitus with diabetic peripheral angiopathy without gangrene; Z21 Asymptomatic human immunodeficiency virus [HIV] infection status; I10 Essential (primary) hypertension; E78.00 Pure hypercholesterolemia, unspecified; E78.5 Hyperlipidemia, unspecified; H40.9 Unspecified glaucoma; H91.92 Unspecified hearing loss, left ear; H26.9 Unspecified cataract; Z79.4 Long term (current) use of insulin; Z87.891 Personal history of nicotine dependence; Z86.73 Personal history of transient ischemic attack (TIA), and cerebral infarction without residual deficits